=== PATIENT | female | born 1990 | race Hispanic/Latino ===

== ENCOUNTER 2024-01-29 00:17 | Inpatient (IN) | payer SELFPAY ==
[2024-01-29] VITALS (48 sets, daily range): BP systolic 76–141; BP diastolic 41–92; PULSE 90–128; RESP 9–37; TEMP 98.6–99.2; O2SAT 97–99
[~2024-01-29] VITALS: Ht 160 cm; Wt 62.6 kg
[2024-01-29 00:43] LABS: ABG OXYGEN SATURATION 73.1 % (94.0-98.0); BASE EXCESS,VENOUS BLOOD GAS -15.1 (-2.0-3.0); HCO3,VENOUS BLOOD GAS 11.3 (22.0-29.0); PCO2,VENOUS BLOOD GAS 29 (38-54); PH,VENOUS BLOOD GAS 7.207 (7.320-7.430); PO2,VENOUS BLOOD GAS 44.3 mmHg (23.0-48.0); VENT MODE, BG ROOMAIR (ROOM AIR)
[2024-01-29 00:50] LABS: BASOPHILS # (AUTO) 0.18 K/uL (0.00-0.20); BASOPHILS % (AUTO) 1.2 % (0.0-5.0); EOSINOPHILS # (AUTO) 0.06 K/uL (0.00-0.70); EOSINOPHILS % (AUTO) 0.4 % (0.0-8.0); HEMATOCRIT 40.3 % (36-48); IMMATURE GRANULOCYTE ABSOLUTE 0.07 K/uL (0-1); LYMPHOCYTES # (AUTO) 1.3 K/uL (1.0-4.8); LYMPHOCYTES % (AUTO) 8.5 % (21.0-51.0); MEAN CORPUSCULAR HEMOGLOBIN 29.7 pg (27.0-33.0); MEAN CORPUSCULAR HGB CONC 31.8 g/dL (32.0-36.0); MEAN CORPUSCULAR VOLUME 93.5 fL (79-99); MONOCYTES # (AUTO) 0.8 K/uL (0.1-1.0); MONOCYTES % (AUTO) 5.4 % (3.0-13.0); NEUTROPHILS # (AUTO) 12.7 K/uL (1.8-7.7); PLATELET COUNT (AUTO) 306 K/uL (130-400); RED BLOOD CELL COUNT(AUTO) 4.31 MIL/uL (4.00-5.50); RED CELL DISTRIBUTION WIDTH 13.2 % (11.0-15.5); WHITE BLOOD COUNT (AUTO) 15.1 K/uL (4.8-10.8)
--- NOTE | 2024-01-29 00:53 | ERN ---
ED Note History of Present Illness Stated Complaint: C/O ABD PAIN WITH N X V ONSET 2 HRS DRAWER IN DOBBY LOOM Chief Complaint: Abdominal Pain Time Seen by MD: 00:30 Time Seen by Midlevel: 00:30 Dictation: 33-year-old female presents to the emergency department due to report of having abdominal cramping, nausea, vomiting and generalized weakness that began yesterday. Patient states that she does have a history of diabetes and has been off her insulin for the past 2 days. She states the purpose of being off the insulin is with no specific purpose since she does have incidental home. Patient states that she believes that she might be in diabetic ketoacidosis due to having a history of being and that is state. She reports having approximately 6 episodes of vomiting prior to arrival. Upon initial evaluation, the patient presents ill looking. Allergies: Coded Allergies: No Known Allergies (Unverified Allergy, Unknown, 01/29/24) Emergency Care DRAWER IN DOBBY LOOM: None Past Medical History Past Medical History: Diabetes-Type II Surgical History: Unknown Social History: Lives with family LMP: Jan 24, 2024 RN Note Reviewed/Agreed w/PFSH: Yes Review of System Dictation Constitutional: Generalized weakness Abdomen/GI: Abdominal cramping, nausea, vomiting Initial Vital Sign VS Vital Signs Date Time Temp Pulse Resp B/P (MAP) Pulse Ox O2 Delivery O2 Flow Rate FiO2 01/29/24 00:19 97.9 119 24 117/78 100 Room Air Physical Exam Dictation General: awake, alert, ill looking Head/Face: Normocephalic, atraumatic Eyes: PERRL, EOMI ENT: Oral mucosa dry Neck: Trachea midline, supple Cardiovascular: RRR, no edema Respiratory: Symmetrical, non-labored Abdomen: Soft, non-tender, non-distended, no guarding. Skin: Warm, dry, no rash MS/Extremity: Pulses equal, no cyanosis, neurovascular intact, FROM Neuro: COAx4, GCS 15, steady gait, Psych: Anxious Results (Laboratory/Radiology) Laboratory/Radiology Laboratory Tests Test 01/29/24 00:39 01/29/24 00:40 01/29/24 00:41 Whole Blood Glucose 583 MG/DL (70-110) *H Bedside Glucose Comment Notified Nurse White Blood Count 15.1 K/uL (4.8-10.8) H Red Blood Count 4.31 MIL/uL (4.00-5.50) Hemoglobin 12.8 g/dL (12.0-16.0) Hematocrit 40.3 % (36-48) Mean Corpuscular Volume 93.5 fL (79-99) Mean Corpuscular Hemoglobin 29.7 pg (27.0-33.0) Mean Corpuscular Hemoglobin Concent 31.8 g/dL (32.0-36.0) L Red Cell Distribution Width 13.2 % (11.0-15.5) Platelet Count 306 K/uL (130-400) Mean Platelet Volume 11.3 fL (7.5-10.5) H Immature Granulocyte % (Auto) 0.5 % (0-1) Neutrophils (%) (Auto) 84.0 % (40.0-77.0) H Lymphocytes (%) (Auto) 8.5 % (21.0-51.0) L Monocytes (%) (Auto) 5.4 % (3.0-13.0) Eosinophils (%) (Auto) 0.4 % (0.0-8.0) Basophils (%) (Auto) 1.2 % (0.0-5.0) Neutrophils # (Auto) 12.7 K/uL (1.8-7.7) H Lymphocytes # (Auto) 1.3 K/uL (1.0-4.8) Monocytes # (Auto) 0.8 K/uL (0.1-1.0) Eosinophils # (Auto) 0.06 K/uL (0.00-0.70) Basophils # (Auto) 0.18 K/uL (0.00-0.20) Absolute Immature Granulocyte (auto 0.07 K/uL (0-1) Nucleated Red Blood Cells 0.0 % (0.0-0.19) White Cell Morphology Comment See comments Sodium Level 131 mmol/L (136-145) L Potassium Level 4.7 mmol/L (3.5-5.1) Chloride Level 88 mmol/L (101-111) *L Carbon Dioxide Level 12 mmol/L (21-32) L Blood Urea Nitrogen 20 mg/dL (7-18) H Creatinine 1.2 mg/dL (0.5-1.0) H Glomerular Filtration Rate Calc 61 mL/min (>90) Random Glucose 613 mg/dL (70-105) *H Whole Blood Ketones Quantitative 7.4 mmol/L (0.0-0.6) H Lactic Acid Level 2.4 mmol/L (0.8-2.5) Total Calcium 9.8 mg/dL (8.5-10.1) Magnesium Level 2.20 mg/dL (1.80-2.40) Total Bilirubin 0.8 mg/dL (0.2-1.0) Aspartate Amino Transf (AST/SGOT) 14 U/L (10-37) Alanine Aminotransferase (ALT/SGPT) 19 U/L (12-78) Alkaline Phosphatase 125 U/L (50-136) Total Protein 8.3 g/dL (6.0-8.3) Albumin 4.0 g/dL (3.5-5.0) Lipase 35 U/L (16-77) Blood Gas Specimen Type Venous Arterial Blood Oxygen Saturation 73.1 % (94.0-98.0) L Venous Blood pH 7.207 (7.320-7.430) Venous Blood pCO2 at Patient Temp 29 (38-54) L Venous Blood pO2 at Patient Temp 44.3 mmHg (23.0-48.0) Venous Blood HCO3 11.3 (22.0-29.0) L Venous Blood Base Excess -15.1 (-2.0-3.0) L Venous Blood Total Hemoglobin 13.7 (12.0-16.0) Sodium (Blood Gas) 136 MMOL/L (136-145) Bedside Potassium (Blood Gas) 4.8 MMOL/L (3.4-4.5) H Bedside Chloride (Blood Gas) 94 MMOL/L (98-107) L Bedside Glucose (Blood Gas) 604 MG/DL (65-95) *H Bedside Ionized Calcium (Blood Gas) 1.31 MMOL/L (1.15-1.33) Bedside Lactic Acid (Blood Gas) 1.98 MMOL/L (0.36-0.75) H Blood Gas Temperature 37.0 CELSIUS (35.5-37.0) Blood Gas Vent Mode ROOMAIR (ROOM AIR) FiO2 21.0 % Blood Gas Specimen Comment RA Labs Reviewed?: Yes EKG Comment: 01/29/2024 at 1:12 a.m. Ventricular rate 121 beats per minute GA 168 MS QRS 66 MS QT 312 MS No STEMI. ED Course ED Course Orders Procedure Category Date Status Time Vital Signs Per CPOE 01/29/24 Transmitted Routine 00:30 Saline Lock Iv CPOE 01/29/24 Transmitted 00:30 Cbc With Differential LAB 01/29/24 Complete 00:30 Comprehensive LAB 01/29/24 Complete Metabolic Panel 00:38 Lactic Acid LAB 01/29/24 Complete 00:38 Magnesium LAB 01/29/24 Complete 00:38 Ketone Blood LAB 01/29/24 Complete Quantitative 00:38 Urinalysis Profile LAB 01/29/24 Logged 00:38 ,Urine Test LAB 01/29/24 Logged 00:38 Venous Blood Gas + RT 01/29/24 Transmitted 00:38 Venous Blood Gas Plus LAB 01/29/24 Complete 00:41 0.9%Nacl 1000ml (Ns PHA 01/29/24 Complete 1000ml) ... 01:00 Lipase LAB 01/29/24 Complete 00:40 Ondansetron 4mg Inj PHA 01/29/24 Complete (Zofran 4mg Inj) 01:00 Initiate REFUGIO 01/29/24 In Process Hyperglycemia Protoco 00:54 Insulin Regular, PHA 01/29/24 Complete Human 3ml (Humulin R 07:30 Insulin Regular, PHA 01/29/24 In Process Human 3ml (Humulin R 01:00 12 Lead Ekg Tracing- EKG 01/29/24 Logged Technical 01:07 Current Medications Medications (Trade) Dose Ordered Sig/Judah Route PRN Reason Start Time Stop Time Status Last Admin Dose Admin Insulin Human Regular (humuLIN R 100 UNIT/ML 3ML) INSULIN SLIDING SCAL... ACHS SQ 01/29/24 07:30 01/29/24 01:00 DC Insulin Human Regular 100 unit/ Sodium Chloride 100 ml @ 0 mls/hr AD PRN IV HYPERGLYCEMIA PROTOCOL 01/29/24 01:00 02/28/24 00:59 Ondansetron HCl (zoFRAN 4MG INJ) 4 mg ONCE ONCE IVP 01/29/24 01:00 01/29/24 01:01 DC 01/29/24 01:06 Sodium Chloride/ Sodium Chloride 2,000 ml @ 0 mls/hr ONCE ONCE IV 01/29/24 01:00 01/29/24 01:01 DC 01/29/24 01:05 Vital Signs Date Time Temp Pulse Resp B/P (MAP) Pulse Ox O2 Delivery O2 Flow Rate FiO2 01/29/24 00:19 97.9 119 24 117/78 100 Room Air Medical Decision Making MDM MDM: Differential diagnosis: Diabetic ketoacidosis, acute dehydration, electrolyte imbalance. Rationale: Tests considered and ordered secondary to shared decision making include: Previous outside records reviewed: Old ER visits. Risk of complication and/or morbidity or mortality of patient management: None Medications-Per medication reconciliation Need for hospitalization: Patient does not meet criteria for hospitalization. Need for emergency major/minor surgery: No There are no social concerns with this patient. Prescription drug management Prescriptions will include symptomatic care Patient's prior external medical records from other ER visits were reviewed by me as indicated. Prior testing and results from previous visits were reviewed. Prior tests were taken into account with medical decision making and resource utilization, independent historian/historians were used to obtain complete medical history. I independently interpreted the test that were performed, results were reviewed by me and considered findings on radiology if ordered. Medical management and examination interpretation discussions were had by me with other qualified healthcare professionals as indicated for the patient's care. Critical Care Note Critical Time: 45 minutes Comment(s) 01/29/2024 at 1:30 a.m.. Discussed with Esha Hudson and agrees for admission. DX & DISP Disposition: Inpatient Decision to Admit Date: Jan 29, 2024 Decision to Admit Time: 01:09 Departure Impression: Primary Impression: Diabetic ketoacidosis without coma Critical Time: 45 minutes Condition: Critical I have reviewed the case, and I agree with, Diagnosis and Plan TK YOU Jan 29, 2024 00:53
[2024-01-29] MEDS ORDERED: INSULIN REGULAR, HUMAN 3ML 100 UNIT in 0.9%NACL 100ML 99 ML IV PRN (01:00)
[2024-01-29] MEDS: [UNRECOGNIZED DRUG - OTHER] IV ONE (01:05)
[2024-01-29] MEDS: ondanSETRON 4MG INJ IVP ONE (01:06)
[2024-01-29 01:12] LABS: BILIRUBIN,TOTAL 0.8 mg/dL (0.2-1.0); CREATININE 1.2 mg/dL (0.5-1.0); MAGNESIUM 2.2 mg/dL (1.80-2.40); POTASSIUM 4.7 mmol/L (3.5-5.1); TOTAL PROTEIN, SERUM 8.3 g/dL (6.0-8.3)
--- NOTE | 2024-01-29 01:28 | HP ---
[facility] Date of Service: Jan 29, 2024 Time of Service: 01:28 PCP: Self-referral HISTORY OF PRESENT ILLNESS: This is a 33-year-old female with past medical history of diabetes type 1 who presents to the ED for complaints of abdominal pain, nausea, vomiting, generalized weakness and diarrhea which started yesterday. Patient states she had the shrimp cocktail for dinner and she started having nausea, vomiting , diarrhea and epigastric pain. Patient patient described pain as sharp. Patient states she had six episodes of nonbloody diarrhea and more than 20 episodes of nonbloody vomiting. Patient reports she has not been taking her insulin for the past two days. Patient reports he has similar problems in the past. Seen and examined patient in the ER awake alert and coherent,appears acutely ill and uncomfortable.Patient continues to have nausea,vomiting and abdominal krysta n8/10 pain level.Patient denies fever,chest pain,palpitation ,cough and shortness of breath. Latest Vital signs temperature 97.9, heart rate 118, blood pressure 99/58, saturation 99% on room air. Labs: VBG PH 7.20, CO2 29, PO2 44, bicarb 11, base excess -15. WBC 15 with negative left shift of neutrophils 84. Sodium 131, chloride 88, CO2 12, BUN 20, creatinine 1.2, GFR 61 glucose 613, ketones 7.4 lactic acid 2.4, lipase 35. While in the ER patient received 2 L of NS bolus, 4 mg IV and patient was started on insulin drip. We will admit patient to ICU for further medical management. REVIEW OF SYSTEMS CONSTITUTIONAL: Positive chills Denies fever & night sweats. No unintentional weight loss reported. NEUROLOGICAL: Positive generalized body weakness Denies headache, amaurosis fugax, motor weakness, sensory deficit, vertigo/spinning sensation, gait abnormalities, or tremors. ENT: No hearing loss, otalgia, otorrhea, rhinitis, rhinorrhea, hoarseness, or sore throat. CARDIOVASCULAR: Denies any exertional angina, dyspnea on exertion, orthopnea, paroxysmal nocturnal dyspnea, palpitations, life-threatening arrhythmias, claudication. PULMONARY: Denies any shortness of breath, cough, phlegm/sputum, hemoptysis, pleuritic chest pain. SLEEP: Denies morning headaches, daytime somnolence or napping. Denies difficulty falling asleep, staying asleep, waking from sleep. Denies knowledge of snoring. GASTROINTESTINAL: Positive abdominal pain, nausea , vomiting and diarrhea Denies any type of dysphagia to either liquids or solids. Denies nausea, vomiting, pyrosis, early satiety, abdominal pain, diarrhea, constipation, or changes in stool consistency or caliber. Denies coffee-ground emesis, hematemesis, hematochezia, or melanotic stools. GENITOURINARY: Denies frequency, urgency, nocturia, hematuria or incontinence (Storage/Irritative symptoms.) Low urinary stream, straining to void, urinary intermittency or hesitancy, splitting of the voiding stream, terminal dribbling. ENDOCRINOLOGIC: Denies polyuria, polydipsia, polyphagia or heat/cold intolerances. HEMATOLOGIC: Denies thrombophilia/previous clots, or coagulopathy/bleeding disorders. ONCOLOGIC: Denies personal history of malignancy. DERMATOLOGIC: Denies rashes or pruritus. PSYCHIATRIC: Denies any suicidal or homicidal ideation. Denies hallucinations. PAST MEDICAL HISTORY: [ Type 1 diabetes ] PAST SURGICAL HISTORY: [ Patient denies ] PAST SOCIAL HISTORY: [ Patient lives alone. Patient admits to smoking six cigar per day. Patient denies alcohol and recreational drug use ] FAMILY HISTORY: [ Noncontributory ] Coded Allergies: No Known Allergies (Unverified Allergy, Unknown, 01/29/24) PHYSICAL EXAM GENERAL APPEARANCE: The patient is awake, alert, and oriented, in no acute cardiopulmonary distress. NEUROLOGICAL: Cranial nerves II-XII grossly intact. Motor is 5/5 in bilateral upper and lower extremities proximal to distal. No sensory deficits. HEENT: Face is symmetric. Pupils are equal and reactive. Extraocular movements are intact. NECK: Supple. No JVD. No thyromegaly. No submental, submandibular, pre- /postauricular, occipital or supraclavicular lymphadenopathy. CHEST: Normal chest expansion. No Telemetry. LUNGS: Absence of any rales, rhonchi or any wheezing. CARDIOVASCULAR: Tachycardic Regular. S1 and S2 normal. No appreciable rubs, murmurs or gallops. ABDOMEN: Abdominal tenderness around epigastric area Soft and nondistended. There is no rebound, voluntary guarding, or rigidity. : Deferred. No Jacob. EXTREMITIES: Non-edematous and not cyanotic. No clubbing. Good capillary refill. SKIN: No skin breakdown. Vital Sign (Last 24 Hours) 01/29/24 00:19 Temp 97.9 Pulse 119 Resp 24 B/P (MAP) 117/78 Pulse Ox 100 O2 Delivery Room Air LABS: Laboratory: Test 01/29/24 00:41 01/29/24 00:40 01/29/24 00:39 Range/Units Blood Gas Specimen Type Venous Arterial Blood Oxygen Saturation 73.1 L 94.0-98.0 % Venous Blood pH 7.207 L 7.320-7.430 Venous Blood pCO2 at Patient Temp 29 L 38-54 Venous Blood pO2 at Patient Temp 44.3 23.0-48.0 mmHg Venous Blood HCO3 11.3 L 22.0-29.0 Venous Blood Base Excess -15.1 L -2.0-3.0 Venous Blood Total Hemoglobin 13.7 12.0-16.0 Sodium (Blood Gas) 136 136-145 MMOL/L Bedside Potassium (Blood Gas) 4.8 H 3.4-4.5 MMOL/L Bedside Chloride (Blood Gas) 94 L 98-107 MMOL/L Bedside Glucose (Blood Gas) 604 *H 65-95 MG/DL Bedside Ionized Calcium (Blood Gas) 1.31 1.15-1.33 MMOL/L Bedside Lactic Acid (Blood Gas) 1.98 H 0.36-0.75 MMOL/L Blood Gas Temperature 37.0 35.5-37.0 CELSIUS Blood Gas Vent Mode ROOMAIR ROOM AIR FiO2 21.0 % Blood Gas Specimen Comment RA White Blood Count 15.1 H 4.8-10.8 K/uL Red Blood Count 4.31 4.00-5.50 MIL/uL Hemoglobin 12.8 12.0-16.0 g/dL Hematocrit 40.3 36-48 % Mean Corpuscular Volume 93.5 79-99 fL Mean Corpuscular Hemoglobin 29.7 27.0-33.0 pg Mean Corpuscular Hemoglobin Concent 31.8 L 32.0-36.0 g/dL Red Cell Distribution Width 13.2 11.0-15.5 % Platelet Count 306 130-400 K/uL Mean Platelet Volume 11.3 H 7.5-10.5 fL Immature Granulocyte % (Auto) 0.5 0-1 % Neutrophils (%) (Auto) 84.0 H 40.0-77.0 % Lymphocytes (%) (Auto) 8.5 L 21.0-51.0 % Monocytes (%) (Auto) 5.4 3.0-13.0 % Eosinophils (%) (Auto) 0.4 0.0-8.0 % Basophils (%) (Auto) 1.2 0.0-5.0 % Neutrophils # (Auto) 12.7 H 1.8-7.7 K/uL Lymphocytes # (Auto) 1.3 1.0-4.8 K/uL Monocytes # (Auto) 0.8 0.1-1.0 K/uL Eosinophils # (Auto) 0.06 0.00-0.70 K/uL Basophils # (Auto) 0.18 0.00-0.20 K/uL Absolute Immature Granulocyte (auto 0.07 0-1 K/uL Nucleated Red Blood Cells 0.0 0.0-0.19 % White Cell Morphology Comment See comments Sodium Level 131 L 136-145 mmol/L Potassium Level 4.7 3.5-5.1 mmol/L Chloride Level 88 *L 101-111 mmol/L Carbon Dioxide Level 12 L 21-32 mmol/L Blood Urea Nitrogen 20 H 7-18 mg/dL Creatinine 1.2 H 0.5-1.0 mg/dL Glomerular Filtration Rate Calc 61 >90 mL/min Random Glucose 613 *H 70-105 mg/dL Whole Blood Ketones Quantitative 7.4 H 0.0-0.6 mmol/L Lactic Acid Level 2.4 0.8-2.5 mmol/L Total Calcium 9.8 8.5-10.1 mg/dL Magnesium Level 2.20 1.80-2.40 mg/dL Total Bilirubin 0.8 0.2-1.0 mg/dL Aspartate Amino Transf (AST/SGOT) 14 10-37 U/L Alanine Aminotransferase (ALT/SGPT) 19 12-78 U/L Alkaline Phosphatase 125 50-136 U/L Total Protein 8.3 6.0-8.3 g/dL Albumin 4.0 3.5-5.0 g/dL Lipase 35 16-77 U/L Whole Blood Glucose 583 *H 70-110 MG/DL Bedside Glucose Comment Notified Nurse Current Medications Medications (Trade) Dose Ordered Sig/Judah Route PRN Reason Start Time Stop Time Status Last Admin Dose Admin Insulin Human Regular (humuLIN R 100 UNIT/ML 3ML) INSULIN SLIDING SCAL... ACHS SQ 01/29/24 07:30 01/29/24 01:00 DC Insulin Human Regular 100 unit/ Sodium Chloride 100 ml @ 0 mls/hr AD PRN IV HYPERGLYCEMIA PROTOCOL 01/29/24 01:00 02/28/24 00:59 DIAGNOSTICS / RADIOLOGY: [ ] ASSESSMENT: Diabetic ketoacidosis with high anion gap metabolic acidosis POA Possible dehydration POA Acute gastroenteritis POA Acute kidney injury POA Sepsis without septic shock POA History of type 1 diabetes POA PLAN: We will admit patient to ICU We will start patient on insulin drip, IV fluids and electrolyte replacement as per DKA protocol We will start patient on famotidine 20 mg IV b.i.d. for GI prophylaxis We will start patient on Levaquin and Flagyl IV for broad-spectrum coverage We will add p.r.n. medication for pain fever nausea and vomiting We will keep patient nothing by mouth We will follow up urinalysis and urine toxicology result We will obtain stool culture and GI stool panel We will seek fecal care consultation for critical care management We will seek endocrinology consultation We will check labs in a.m. Further recommendations to follow depending upon hospitalization course Case discussed with the attending MD and came up with the above treatment and plan of care ADVANCED CARE PLANNING 1. Which of the following were discussed? Hospice Care - No Therapeutic options - Yes Advance Directives - No Other discussions - 2. Discussed with who? Patient 3. Voluntary nature of this service was explained to the patient? Yes 4. Amount of time spent - ___22____ 5. Reviewed by Physician? (if this service was performed by NPP) Yes ADVANCED CARE PLANNING 1. Which of the following were discussed? Hospice Care - Yes / No Therapeutic options - Yes / No Advance Directives - Yes / No Other discussions - 2. Discussed with who? 3. Voluntary nature of this service was explained to the patient? Yes / No 4. Amount of time spent - 5. Reviewed by Physician? (if this service was performed by NPP) Yes / No JOYCELYN LEHMAN Jan 29, 2024 01:28
[2024-01-29] MEDS ORDERED: DEXTROSE 5 %-0.45 % NACL 1,000 ML IV SCH (02:30)
[2024-01-29] MEDS ORDERED: MANNITOL 20% 250ML IV.SOLN IV SCH (02:30)
[2024-01-29] MEDS ORDERED: MAGNESIUM 2GM PREMIX 50ML 50 ML IV SCH (02:30)
[2024-01-29] MEDS ORDERED: INSULIN REGULAR, HUMAN 3ML 100 UNIT in 0.9%NACL 100ML 100 ML IV SCH (02:30)
[2024-01-29] MEDS: 0.9%NACL 1000ML 1,000 ML IV SCH (02:35)
[2024-01-29] MEDS: PoTASSium chloRIDE 20MEQ/10ML 20 MEQ in 0.9%NACL 1000ML 1,000 ML IV SCH (02:37)
[2024-01-29] MEDS: NS-20 MEQ KCL 1000ML 1,000 ML IV ONE (02:38)
[2024-01-29 02:59] LABS: HCG,QUALITATIVE URINE NEGATIVE (NEGATIVE)
[2024-01-29] MEDS ORDERED: MANNITOL 20% 500 ML IV.SOLN IV SCH (03:00)
[2024-01-29 03:03] LABS: ADD UA MICROSCOPIC YES; APPEARANCE,URINE CLEAR (CLEAR); BILIRUBIN,URINE NEGATIVE (NEGATIVE); COLOR,URINE COLORLESS (YELLOW); GLUCOSE, URINE (UA) >=1000 mg/dL (NEGATIVE); KETONES,URINE 150 mg/dL (NEGATIVE); LEUKOCYTE ESTERASE ,URINE NEGATIVE Leu/uL (NEGATIVE); NITRATE,URINE NEGATIVE (NEGATIVE); OCCULT BLOOD,URINE NEGATIVE (NEGATIVE); PROTEIN,URINE NEGATIVE (NEGATIVE); UROBILINOGEN,URINE 0.2 mg/dL (0.2-1.0)
[2024-01-29 03:06] LABS: BACTERIA,URINE RARE /HPF (None Seen); MUCUS,URINE RARE LPF (None Seen); RBC,URINE 0-1 /HPF (0-1); SQUAMOUS EPITHELIAL CELL,UR RARE /HPF (0-2)
[2024-01-29] MEDS: metRONIDazole 500MG/100ML BAG 100 ML IV SCH (03:24)
[2024-01-29] MEDS: levoFLOXacin 500 MG/D5W 100 ML 100 ML IV SCH (03:24)
[2024-01-29] MEDS: LACTATED RINGERS 1000ML IV ONE (03:44)
[2024-01-29 03:50] LABS: AMPHET/METH SCREEN,URINE NEGATIVE (NEGATIVE); BARBITURATE SCREEN, URINE NEGATIVE (NEGATIVE); BENZODIAZEPINES SCREEN,URINE NEGATIVE (NEGATIVE); CANNABINOID SCREEN,URINE NEGATIVE (NEGATIVE); COCAINE SCREEN,URINE POSITIVE (NEGATIVE); OPIATE SCREEN,URINE NEGATIVE (NEGATIVE); PHENCYCLIDINE SCREEN,URINE NEGATIVE (NEGATIVE)
[2024-01-29] MEDS ORDERED: NOREPINEPHRIN 4MG/NS 250ML 250 ML IV SCH (04:00)
[2024-01-29 05:10] LABS: BASOPHILS # (AUTO) 0.11 K/uL (0.00-0.20); BASOPHILS % (AUTO) 0.7 % (0.0-5.0); EOSINOPHILS # (AUTO) 0.01 K/uL (0.00-0.70); EOSINOPHILS % (AUTO) 0.1 % (0.0-8.0); HEMATOCRIT 34.7 % (36-48); LYMPHOCYTES # (AUTO) 0.9 K/uL (1.0-4.8); MEAN CORPUSCULAR HEMOGLOBIN 29.7 pg (27.0-33.0); MEAN CORPUSCULAR HGB CONC 31.4 g/dL (32.0-36.0); MEAN CORPUSCULAR VOLUME 94.6 fL (79-99); MONOCYTES # (AUTO) 0.7 K/uL (0.1-1.0); MONOCYTES % (AUTO) 4.9 % (3.0-13.0); NEUTROPHILS # (AUTO) 13.2 K/uL (1.8-7.7); NEUTROPHILS % (AUTO) 87.6 % (40.0-77.0); PLATELET COUNT (AUTO) 261 K/uL (130-400); RED BLOOD CELL COUNT(AUTO) 3.67 MIL/uL (4.00-5.50); RED CELL DISTRIBUTION WIDTH 13.1 % (11.0-15.5)
[2024-01-29 05:45] LABS: ALBUMIN 3.1 g/dL (3.5-5.0); BILIRUBIN,TOTAL 0.4 mg/dL (0.2-1.0); CREATININE 0.9 mg/dL (0.5-1.0); MAGNESIUM 1.7 mg/dL (1.80-2.40); POTASSIUM 4.6 mmol/L (3.5-5.1); THYROID STIMULATING HORMONE 0.26 uIU/mL (0.36-3.74); TOTAL PROTEIN, SERUM 6.2 g/dL (6.0-8.3)
[2024-01-29] MEDS: D5W-1/2 NS/20MEQ KCL 1,000 ML IV SCH (05:55)
[2024-01-29] MEDS ORDERED: LORazepam 2 MG/ML 1 ML VIAL IVP ONE (06:35)
--- NOTE | 2024-01-29 06:52 | EKG ---
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
[2024-01-29] MEDS ORDERED: INSULIN humuLIN R 100 UNIT/ML 3ML SQ SCH ×2 (07:30→21:00)
[2024-01-29] MEDS: FAMOTIDINE 20MG VIAL IV SCH (07:58)
[2024-01-29] MEDS: ondanSETRON 4MG INJ IV PRN (07:58)
[2024-01-29] MEDS ORDERED: [UNRECOGNIZED DRUG - OTHER] SQ (08:07)
--- NOTE | 2024-01-29 08:35 | CONS ---
[facility] CONSULTATION NOTE Date Patient Seen: Jan 29, 2024 Time of Visit: 08:06 Supervising Physician: Colton Loredo MD Reason for Consultation: Critical care management Primary Care Physician: Self-referral Outpatient Specialists: Inpatient Consults: Critical care Attending: Jennifer team PROBLEM LIST: DKA, POA Dehydration, POA Gastroenteritis, POA ZECHARIAH, POA Sepsis, POA Leukocytosis, POA Hyperglycemia in the presence of T1DM Hypomagnesemia Drug abuse (cocaine+ on UDS) HPI: Patient is a 33-year-old female with a past medical history of type 1 diabetes mellitus and drug abuse as evident by UDS positive for cocaine, who came in overnight for complaints of nausea, vomiting, diarrhea and epigastric pain. In the ED she was found to be in DKA with a pH of 7.20, pCO2 of 29 PO2 of 44.3 and bicarb of 11.3 on a venous blood gas. Glucose was 604. On CBC patient had leukocytosis with a white count of 15 , chemistry patient was also found to have a carbon dioxide of 12, BUN of 20 creatinine of 1.2 and GFR of 61 consistent with a ZECHARIAH in the ketones of 7.4. Patient was admitted by the catalyst team to the ICU for insulin for DKA, was started on Levaquin and Flagyl for gastroenteritis and IV fluids started. We were consulted for critical care management. On behalf of [facility] thank you for given us the opportunity to participate in the care of this patient. Patient was seen this morning lethargic but easily arousable to voice. Reports nausea and vomiting but decreased epigastric pain. Patient is sinus tachy on the monitor with a heart rate of 110 beats per minute but hemodynamically stable with a blood pressure of 101/45. The patient's currently receiving insulin per DKA protocol and IV fluids. She has been afebrile saturating at 99% with respiratory rate of 16 unlabored. This morning sodium is 141 potassium 4.6 chloride 105 with a CO2 of 15 BUN of 16 creatinine 0.9 GFR is 87 kidney function improving. Anion gap still elevated at 21. Glucose 281 mg/dL magnesium 1.7 covered per protocol total calcium 8.2 albumin 3.1 and TSH 0.26. PAST MEDICAL HX: Type 1 diabetes mellitus PAST SURGICAL HX: noncontributory SOCIAL HISTORY: No tobacco, ETOH, or illicit drug use Coded Allergies: No Known Allergies (Unverified Allergy, Unknown, 01/29/24) REVIEW OF SYSTEMS: 12 point ROS reviewed with patient. Pertinent positives mentioned above. Otherwise negative. PHYSICAL EXAM: GENERAL: Lethargic, weak, easily arousable, oriented x 3 HEENT: EOMI, Sclera non icteric, moist mucosa NECK: Supple, no JVD, trachea midline LUNGS: Clear breath sounds bilaterally. No wheezes HEART: Regular rate and rhythm. Normal S1 and S2, without murmurs ABD: Abdomen soft, nontender. Bowel sounds present EXT: No clubbing cyanosis or edema NEURO: Alert and oriented to person, follows commands Vital Signs (last 8hr) Date Time Temp Pulse Resp B/P (MAP) Pulse Ox O2 Delivery O2 Flow Rate FiO2 01/29/24 07:30 119 14 107/61 (76) 100 01/29/24 07:15 119 11 141/92 (108) 98 01/29/24 07:00 122 9 76/42 (53) 98 01/29/24 06:45 119 14 92/41 (58) 98 01/29/24 06:30 122 10 99/45 (63) 98 01/29/24 06:15 123 16 103/52 (69) 97 01/29/24 06:00 125 17 102/58 (73) 98 01/29/24 05:45 123 18 93/58 (70) 96 01/29/24 05:30 123 17 94/54 (67) 98 01/29/24 05:18 98 Room Air* 0 21 01/29/24 05:15 123 17 108/52 (70) 98 01/29/24 05:00 124 19 105/49 (67) 98 01/29/24 04:45 127 17 105/58 (74) 98 01/29/24 04:30 124 18 102/64 (77) 99 01/29/24 04:15 127 17 108/80 (89) 99 01/29/24 04:00 99.0 128 22 109/45 (66) 99 01/29/24 03:51 98.2 125 16 101/45 99 Room Air* 0 21 01/29/24 03:18 98.2 124 20 100/42 99 Room Air* 0 21 01/29/24 01:30 97.9 118 23 99/58 99 Room Air* 0 21 01/29/24 00:19 97.9 119 24 117/78 100 Room Air LABS: Hematology Labs: Test 01/29/24 04:53 01/29/24 00:40 Range/Units White Blood Count 15.0 H 4.8-10.8 K/uL Red Blood Count 3.67 L 4.00-5.50 MIL/uL Hemoglobin 10.9 L 12.0-16.0 g/dL Hematocrit 34.7 L 36-48 % Mean Corpuscular Volume 94.6 79-99 fL Mean Corpuscular Hemoglobin 29.7 27.0-33.0 pg Mean Corpuscular Hemoglobin Concent 31.4 L 32.0-36.0 g/dL Red Cell Distribution Width 13.1 11.0-15.5 % Platelet Count 261 130-400 K/uL Mean Platelet Volume 11.0 H 7.5-10.5 fL Immature Granulocyte % (Auto) 0.7 0-1 % Neutrophils (%) (Auto) 87.6 H 40.0-77.0 % Lymphocytes (%) (Auto) 6.0 L 21.0-51.0 % Monocytes (%) (Auto) 4.9 3.0-13.0 % Eosinophils (%) (Auto) 0.1 0.0-8.0 % Basophils (%) (Auto) 0.7 0.0-5.0 % Neutrophils # (Auto) 13.2 H 1.8-7.7 K/uL Lymphocytes # (Auto) 0.9 L 1.0-4.8 K/uL Monocytes # (Auto) 0.7 0.1-1.0 K/uL Eosinophils # (Auto) 0.01 0.00-0.70 K/uL Basophils # (Auto) 0.11 0.00-0.20 K/uL Absolute Immature Granulocyte (auto 0.10 0-1 K/uL Nucleated Red Blood Cells 0.0 0.0-0.19 % White Cell Morphology Comment See comments Chemistry Labs: Test 01/29/24 06:29 01/29/24 04:53 01/29/24 00:40 01/29/24 00:39 Range/Units Whole Blood Glucose 220 H 70-110 MG/DL Sodium Level 141 136-145 mmol/L Potassium Level 4.6 3.5-5.1 mmol/L Chloride Level 105 101-111 mmol/L Carbon Dioxide Level 15 L 21-32 mmol/L Blood Urea Nitrogen 16 7-18 mg/dL Creatinine 0.9 0.5-1.0 mg/dL Glomerular Filtration Rate Calc 87 >90 mL/min Random Glucose 281 #H 70-105 mg/dL Hemoglobin A1c 13.0 H 4.0-6.0 % Estimated Average Glucose (eAG) 326 H 70-126 mg/dL Lactic Acid Level 1.7 0.8-2.5 mmol/L Total Calcium 8.2 L 8.5-10.1 mg/dL Magnesium Level 1.70 L 1.80-2.40 mg/dL Total Bilirubin 0.4 # 0.2-1.0 mg/dL Aspartate Amino Transf (AST/SGOT) 13 10-37 U/L Alanine Aminotransferase (ALT/SGPT) 19 12-78 U/L Alkaline Phosphatase 101 50-136 U/L Total Protein 6.2 # 6.0-8.3 g/dL Albumin 3.1 #L 3.5-5.0 g/dL Procalcitonin 0.12 0.05-0.5 ng/mL Thyroid Stimulating Hormone (TSH) 0.26 L 0.36-3.74 uIU/mL Whole Blood Ketones Quantitative 7.4 H 0.0-0.6 mmol/L Lipase 35 16-77 U/L Bedside Glucose Comment Notified Nurse DIAGNOSTICS / RADIOLOGY RESULTS: [ ] PLAN Continue insulin per DKA protocol CBC CMP in a.m. BNP q.4 hours per protocol Glucose per fingerstick Q 1 hour Gastroenteritis may be precipitating infection Continue IV antibiotics with Zosyn Monitor for fevers and increasing leukocytosis Telemetry monitoring Vital signs per ICU Monitor serum sodium which tends to rise as hyperglycemia is corrected Strict I&O Follow fluid balance Add basal insulin tonight NEURO: Minimize central acting medications as possible. Fall Precautions. Well lighted room through the day and minimize interruptions through the night to prevent acute delirium. PULMONARY: Supplemental 02 as needed Titrate Fio2 to keep Spo2 > or = 90% DuoNebs and CPT as needed IS hourly while awake for pulmonary hygiene Out of bed to chair as tolerated VAP Bundle Patient on room air CARDIOVASCULAR: Follow hemodynamics. Titrate vasopressor to keep MAP >65 or systolic blood pressure >95mmHg Telemetry monitoring Drips: Insulin drip LINES: PIV GI & NUTRITION: Continue nutritional support Aspirations precautions Prokinetic agents and laxatives as needed KIDNEYS & ELECTROLYTES: Strict monitoring of intake and output Daily weights Avoid nephrotoxic agents Monitor electrolytes and replace as needed Goal urine output of 30mL/hr or 0.5mL/kg/hr Urine output: [ ] Fluid Balance: [ ] ENDOCRINE: Maintain blood glucose between 100-180 at all times. Insulin sliding scale for blood glucose management INFECTIOUS DISEASE: Trend temperature. Abreu-culture if febrile. Micro: Blood culture- Respiratory culture- Antibiotics: 01/29/24 Zosyn HEMATOLOGY & COAGULATION: Monitor H&H. Keep Hgb > 7 Transfuse 1 unit of PRBC for Hgb < 7 Transfuse 1 pack of platelets of platelets < 20, 000 Watch for any signs and symptoms of bleeding SKIN: Pressure ulcer prevention per facility protocol Rehab: PT/OT Prophylaxis: GI: Pepcid DVT: Lovenox Code Status: Full Resuscitation Disposition: ICU Other: Total patient care time exceeds 35 minutes excluding all procedures. Case was discussed and seen with my supervising physician. The above plan was formulated and agreed upon. LIAM CHAVEZ [facility] Jan 29, 2024 08:35
--- NOTE | 2024-01-29 08:36 | HMCIMG ---
CT ABDOMEN/PELVIS W/O CONTRAST HISTORY: Epigastric pain COMPARISON: None TECHNIQUE: Multiple sequential axial images of the abdomen and pelvis were obtained from the dome of the diaphragm through symphysis pubis. Patient was not given contrast through intravenous route. Oral contrast was not given. FINDINGS: No pleural effusion is seen bilaterally. There is right lower lobe mass near the inferior vena cava measuring 3 x 2.6 cm with spiculated border may be related to neoplastic process versus atypical pneumonia. Degenerative changes of the thoracolumbar spine are present. The heart is not enlarged. Liver measures 18 cm. The liver, spleen, adrenal glands and pancreas are unremarkable. There is no evidence of hydronephrosis bilaterally. No evidence of renal stone is seen. Fecal material is seen in the colon. There are normal size retroperitoneal and mesenteric lymph nodes. No ascites is seen. No CT evidence of acute appendicitis is seen. Pelvic sidewalls are symmetric bilaterally. Bladder is moderately distended with bladder wall thickening measuring 5 mm in thickness. If there is clinical suspicion for cystitis, urinalysis correlation may be helpful. IMPRESSION: 1. There is right lower lobe mass near the inferior vena cava measuring 3 x 2.6 cm with spiculated border may be related to neoplastic process with small possibility of atypical pneumonia not excluded. 2. Bladder is moderately distended with bladder wall thickening measuring 5 mm in thickness. If there is clinical suspicion for cystitis, urinalysis correlation may be helpful. CT was performed with one or more following dose reduction techniques: automated exposure control, adjustment of the mA and kv according to patient's size, or use of a iterative reconstruction technique.
[2024-01-29] MEDS ORDERED: LORazepam 2 MG/ML 1 ML VIAL IVP PRN (09:00)
[2024-01-29] MEDS ORDERED: PHARMACY COMMUNICATION MISC PRN (09:00)
[2024-01-29] MEDS ORDERED: THIAMINE HCL 100 MG/ML 2ML VIAL IM SCH (09:00)
[2024-01-29] MEDS ORDERED: PROMETHAZINE HCL 25 MG TABLET PO PRN (09:00)
--- NOTE | 2024-01-29 09:01 | HMCIMG ---
CHEST 1VW HISTORY: Sepsis COMPARISON: None FINDINGS: A frontal projection of the chest was obtained. No acute pulmonary infiltrates is seen. The heart is borderline enlarged. Prominent interstitial markings are seen. No evidence of aortic calcification is seen. IMPRESSION: 1. No acute pulmonary infiltrate is seen. Prominent interstitial markings.
[2024-01-29 11:13] LABS: CREATININE 0.8 mg/dL (0.5-1.0); POTASSIUM 3.9 mmol/L (3.5-5.1)
[2024-01-29] MEDS ORDERED: PoTASSium chloRIDE 20MEQ/100ML 100 ML IV PRN ×2 (11:30→17:00)
[2024-01-29] MEDS: ZOSYN 3.375GM +NS 50ML IV SCH (11:48)
[2024-01-29] MEDS: FOLic ACID 1 MG TABLET PO SCH ×2 (11:48→13:30)
[2024-01-29] MEDS: MULTIVITAMIN TABLET PO SCH (11:49)
[2024-01-29] MEDS: ENOXAPARIN SODIUM 40 MG/0.4 ML SYRINGE SQ SCH (11:50)
[2024-01-29] MEDS: MAGNESIUM 2GM PREMIX 50ML 50 ML IV PRN (11:51)
[2024-01-29 15:08] LABS: CREATININE 0.8 mg/dL (0.5-1.0); POTASSIUM 3.7 mmol/L (3.5-5.1)
[2024-01-29] MEDS ORDERED: PoTASSium chl 10% ELIXIR 20MEQ 20 MEQ/15 ML UDCUP PO PRN (17:00)
[2024-01-29] MEDS: THIAMINE HCL 100 MG/ML 2ML VIAL IVP SCH (17:19)
[2024-01-29] MEDS: INSULIN GLARgine 100 UNITS/ML 10 ML VIAL SQ ONE (17:20)
[2024-01-29] MEDS: PoTASSium chloRIDE 20MEQ ER 20 MEQ ERTAB PO PRN (17:24)
[2024-01-29 18:29] LABS: CREATININE 0.8 mg/dL (0.5-1.0); POTASSIUM 3.5 mmol/L (3.5-5.1)
[2024-01-29] MEDS: LACTATED RINGERS 1000ML IV SCH (20:27)
[2024-01-29] MEDS: INSULIN GLARgine 100 UNITS/ML 10 ML VIAL SQ SCH (20:30)
[2024-01-29] MEDS: INSULIN humuLIN R 100 UNIT/ML 3ML SQ SCH (20:32)
[2024-01-29 21:05] LABS: CREATININE 0.8 mg/dL (0.5-1.0); POTASSIUM 4.1 mmol/L (3.5-5.1)
[2024-01-30] VITALS (10 sets, daily range): BP systolic 104–155; BP diastolic 66–90; PULSE 75–95; RESP 16–21; TEMP 98–98.8; O2SAT 97–99
[2024-01-30 04:34] LABS: BASOPHILS # (AUTO) 0.09 K/uL (0.00-0.20); BASOPHILS % (AUTO) 1.1 % (0.0-5.0); EOSINOPHILS # (AUTO) 0.35 K/uL (0.00-0.70); EOSINOPHILS % (AUTO) 4.3 % (0.0-8.0); HEMATOCRIT 31.6 % (36-48); IMMATURE GRANULOCYTE ABSOLUTE 0.02 K/uL (0-1); LYMPHOCYTES # (AUTO) 2.3 K/uL (1.0-4.8); LYMPHOCYTES % (AUTO) 28.2 % (21.0-51.0); MEAN CORPUSCULAR HEMOGLOBIN 28.5 pg (27.0-33.0); MEAN CORPUSCULAR HGB CONC 31.6 g/dL (32.0-36.0); MONOCYTES # (AUTO) 0.6 K/uL (0.1-1.0); MONOCYTES % (AUTO) 7.4 % (3.0-13.0); NEUTROPHILS # (AUTO) 4.8 K/uL (1.8-7.7); NEUTROPHILS % (AUTO) 58.8 % (40.0-77.0); PLATELET COUNT (AUTO) 232 K/uL (130-400); RED BLOOD CELL COUNT(AUTO) 3.51 MIL/uL (4.00-5.50); RED CELL DISTRIBUTION WIDTH 13.6 % (11.0-15.5); WHITE BLOOD COUNT (AUTO) 8.2 K/uL (4.8-10.8)
[2024-01-30 04:52] LABS: ALBUMIN 2.3 g/dL (3.5-5.0); BILIRUBIN,TOTAL 0.2 mg/dL (0.2-1.0); CREATININE 0.7 mg/dL (0.5-1.0); POTASSIUM 3.7 mmol/L (3.5-5.1); TOTAL PROTEIN, SERUM 5.1 g/dL (6.0-8.3)
[2024-01-30 05:17] LABS: INFLUENZA TYPE A Negative For Type A (NEGATIVE); INFLUENZA TYPE B Negative For Type B (NEGATIVE)
[2024-01-30 05:18] LABS: COVID19 (SARS ANTIGEN RAPID) PRESUMPTIVE NEGATIVE (NEGATIVE)
[2024-01-30] MEDS ORDERED: THIAMINE HCL 100 MG/ML 2ML VIAL IVP SCH (09:00)
--- NOTE | 2024-01-30 14:19 | PN ---
[facility] PROGRESS NOTE Date of Service: Jan 30, 2024 Time of Service: 14:15 SUBJECTIVE: [ ] The patient has been seen and examined during my rounding, downgraded from the ICU to the medical floor, alert oriented x3, feels weak, hemodynamically stable, BP 128/90, afebrile, saturating normal on room air, no chest pain, no shortness a breath, no nausea, no vomiting, no abdominal pain. REVIEW OF SYSTEMS CONSTITUTIONAL: Positive chills Denies fever & night sweats. No unintentional weight loss reported. NEUROLOGICAL: Positive generalized body weakness Denies headache, amaurosis fugax, motor weakness, sensory deficit, vertigo/spinning sensation, gait abnormalities, or tremors. ENT: No hearing loss, otalgia, otorrhea, rhinitis, rhinorrhea, hoarseness, or sore throat. CARDIOVASCULAR: Denies any exertional angina, dyspnea on exertion, orthopnea, paroxysmal nocturnal dyspnea, palpitations, life-threatening arrhythmias, claudication. PULMONARY: Denies any shortness of breath, cough, phlegm/sputum, hemoptysis, pleuritic chest pain. SLEEP: Denies morning headaches, daytime somnolence or napping. Denies d ifficulty falling asleep, staying asleep, waking from sleep. Denies knowledge of snoring. GASTROINTESTINAL: Positive abdominal pain, nausea , vomiting and diarrhea Denies any type of dysphagia to either liquids or solids. Denies nausea, vomiting, pyrosis, early satiety, abdominal pain, diarrhea, constipation, or changes in stool consistency or caliber. Denies coffee-ground emesis, hematemesis, hematochezia, or melanotic stools. GENITOURINARY: Denies frequency, urgency, nocturia, hematuria or incontinence (Storage/Irritative symptoms.) Low urinary stream, straining to void, urinary intermittency or hesitancy, splitting of the voiding stream, terminal dribbling. ENDOCRINOLOGIC: Denies polyuria, polydipsia, polyphagia or heat/cold intolerances. HEMATOLOGIC: Denies thrombophilia/previous clots, or coagulopathy/bleeding disorders. ONCOLOGIC: Denies personal history of malignancy. DERMATOLOGIC: Denies rashes or pruritus. PSYCHIATRIC: Denies any suicidal or homicidal ideation. Denies hallucinations. PHYSICAL EXAM GENERAL APPEARANCE: The patient is awake, alert, and oriented, in no acute cardiopulmonary distress. NEUROLOGICAL: Cranial nerves II-XII grossly intact. Motor is 5/5 in bilateral upper and lower extremities proximal to distal. No sensory deficits. HEENT: Face is symmetric. Pupils are equal and reactive. Extraocular movements are intact. NECK: Supple. No JVD. No thyromegaly. No submental, submandibular, pre- /postauricular, occipital or supraclavicular lymphadenopathy. CHEST: Normal chest expansion. No Telemetry. LUNGS: Absence of any rales, rhonchi or any wheezing. CARDIOVASCULAR: Tachycardic Regular. S1 and S2 normal. No appreciable rubs, murmurs or gallops. ABDOMEN: Abdominal tenderness around epigastric area Soft and nondistended. There is no rebound, voluntary guarding, or rigidity. : Deferred. No Jacob. EXTREMITIES: Non-edematous and not cyanotic. No clubbing. Good capillary refill. SKIN: No skin breakdown. Vital Signs (last 8hr) Date Time Temp Pulse Resp B/P (MAP) Pulse Ox O2 Delivery O2 Flow Rate FiO2 01/30/24 12:05 98.1 86 18 128/90 99 01/30/24 09:08 97 Room Air* 0 21 01/30/24 07:48 98.2 86 16 125/83 Room Air LABS: Laboratory: Test 01/30/24 11:56 01/30/24 04:15 01/29/24 08:31 01/29/24 04:53 Range/Units Whole Blood Glucose 88 # 70-110 MG/DL White Blood Count 8.2 # 4.8-10.8 K/uL Red Blood Count 3.51 L 4.00-5.50 MIL/uL Hemoglobin 10.0 L 12.0-16.0 g/dL Hematocrit 31.6 L 36-48 % Mean Corpuscular Volume 90.0 79-99 fL Mean Corpuscular Hemoglobin 28.5 27.0-33.0 pg Mean Corpuscular Hemoglobin Concent 31.6 L 32.0-36.0 g/dL Red Cell Distribution Width 13.6 11.0-15.5 % Platelet Count 232 130-400 K/uL Mean Platelet Volume 10.6 H 7.5-10.5 fL Immature Granulocyte % (Auto) 0.2 0-1 % Neutrophils (%) (Auto) 58.8 40.0-77.0 % Lymphocytes (%) (Auto) 28.2 21.0-51.0 % Monocytes (%) (Auto) 7.4 3.0-13.0 % Eosinophils (%) (Auto) 4.3 0.0-8.0 % Basophils (%) (Auto) 1.1 0.0-5.0 % Neutrophils # (Auto) 4.8 1.8-7.7 K/uL Lymphocytes # (Auto) 2.3 1.0-4.8 K/uL Monocytes # (Auto) 0.6 0.1-1.0 K/uL Eosinophils # (Auto) 0.35 0.00-0.70 K/uL Basophils # (Auto) 0.09 0.00-0.20 K/uL Absolute Immature Granulocyte (auto 0.02 0-1 K/uL Nucleated Red Blood Cells 0.0 0.0-0.19 % Sodium Level 136 136-145 mmol/L Potassium Level 3.7 3.5-5.1 mmol/L Chloride Level 106 101-111 mmol/L Carbon Dioxide Level 23 21-32 mmol/L Blood Urea Nitrogen 5 L 7-18 mg/dL Creatinine 0.7 0.5-1.0 mg/dL Glomerular Filtration Rate Calc 117 >90 mL/min Random Glucose 227 H 70-105 mg/dL Total Calcium 7.8 L 8.5-10.1 mg/dL Total Bilirubin 0.2 # 0.2-1.0 mg/dL Aspartate Amino Transf (AST/SGOT) 10 10-37 U/L Alanine Aminotransferase (ALT/SGPT) 13 # 12-78 U/L Alkaline Phosphatase 74 # 50-136 U/L Total Protein 5.1 L 6.0-8.3 g/dL Albumin 2.3 #L 3.5-5.0 g/dL Influenza Type A Antigen Negative For Type A NEGATIVE Influenza Type B Antigen Negative For Type B NEGATIVE SARS-CoV-2 Antigen (Rapid) PRESUMPTIVE NEGATIVE NEGATIVE Serum Alcohol < 3 0-10 mg/dL Hemoglobin A1c 13.0 H 4.0-6.0 % Estimated Average Glucose (eAG) 326 H 70-126 mg/dL Lactic Acid Level 1.7 0.8-2.5 mmol/L Magnesium Level 1.70 L 1.80-2.40 mg/dL Procalcitonin 0.12 0.05-0.5 ng/mL Thyroid Stimulating Hormone (TSH) 0.26 L 0.36-3.74 uIU/mL Test 01/29/24 02:42 01/29/24 00:41 01/29/24 00:40 01/29/24 00:39 Range/Units Urine Color COLORLESS YELLOW Urine Appearance CLEAR CLEAR Urine pH 5.0 5.0-8.0 Urine Specific [place] 1.016 1.001-1.031 Urine Protein NEGATIVE NEGATIVE mg/dL Urine Glucose (UA) >=1000 H NEGATIVE mg/dL Urine Ketones 150 H NEGATIVE mg/dL Urine Occult Blood NEGATIVE NEGATIVE Urine Nitrate NEGATIVE NEGATIVE Urine Bilirubin NEGATIVE NEGATIVE mg/dL Urine Urobilinogen 0.2 0.2-1.0 mg/dL Urine Leukocyte Esterase NEGATIVE NEGATIVE Marla/uL Urine RBC 0-1 0-1 /HPF Urine WBC None 0-1 /HPF Urine Squamous Epithelial Cells RARE 0-2 /HPF Urine Bacteria RARE None Seen /HPF Urine HCG, Qualitative NEGATIVE NEGATIVE Urine Opiates Screen NEGATIVE NEGATIVE Urine Barbiturates Screen NEGATIVE NEGATIVE Urine Phencyclidine Screen NEGATIVE NEGATIVE Urine Amphetamines Screen NEGATIVE NEGATIVE Urine Benzodiazepines Screen NEGATIVE NEGATIVE Urine Cocaine Screen POSITIVE H NEGATIVE Urine Marijuana (THC) Screen NEGATIVE NEGATIVE Blood Gas Specimen Type Venous Arterial Blood Oxygen Saturation 73.1 L 94.0-98.0 % Venous Blood pH 7.207 L 7.320-7.430 Venous Blood pCO2 at Patient Temp 29 L 38-54 Venous Blood pO2 at Patient Temp 44.3 23.0-48.0 mmHg Venous Blood HCO3 11.3 L 22.0-29.0 Venous Blood Base Excess -15.1 L -2.0-3.0 Venous Blood Total Hemoglobin 13.7 12.0-16.0 Sodium (Blood Gas) 136 136-145 MMOL/L Bedside Potassium (Blood Gas) 4.8 H 3.4-4.5 MMOL/L Bedside Chloride (Blood Gas) 94 L 98-107 MMOL/L Bedside Glucose (Blood Gas) 604 *H 65-95 MG/DL Bedside Ionized Calcium (Blood Gas) 1.31 1.15-1.33 MMOL/L Bedside Lactic Acid (Blood Gas) 1.98 H 0.36-0.75 MMOL/L Blood Gas Temperature 37.0 35.5-37.0 CELSIUS Blood Gas Vent Mode ROOMAIR ROOM AIR FiO2 21.0 % Blood Gas Specimen Comment RA White Cell Morphology Comment See comments Whole Blood Ketones Quantitative 7.4 H 0.0-0.6 mmol/L Lipase 35 16-77 U/L Bedside Glucose Comment Notified Nurse Current Medications Medications (Trade) Dose Ordered Sig/Judah Route PRN Reason Start Time Stop Time Status Last Admin Dose Admin Dextrose/Sodium Chloride 1,000 ml @ 0 mls/hr AD IV 01/29/24 02:30 01/29/24 19:58 DC Enoxaparin Sodium (Lovenox) 40 mg DAILY SQ 01/29/24 09:00 02/28/24 08:59 01/30/24 08:48 40 MG Famotidine (Pepcid 20mg Vial) 20 mg BID IV 01/29/24 09:00 02/28/24 08:59 01/30/24 08:50 20 MG Folic Acid (FOLic ACID 1 MG TABLET) 1 mg DAILY PO 01/29/24 09:00 01/29/24 13:06 DC 01/29/24 11:48 1 MG Folic Acid (FOLic ACID 1 MG TABLET) 1 mg DAILY PO 01/29/24 13:30 01/30/24 09:01 DC 01/30/24 08:49 1 MG Insulin Glargine (LANtus 100 UNITS/ML 10 ML VIAL) 15 units BID@0730,2100 SQ 01/29/24 21:00 02/28/24 20:59 01/30/24 06:36 15 UNITS Insulin Human Regular (humuLIN R 100 UNIT/ML 3ML) INSULIN SLIDING SCAL... ACHS SQ 01/29/24 07:30 01/29/24 01:00 DC Insulin Human Regular (humuLIN R 100 UNIT/ML 3ML) INSULIN SLIDING SCAL... ACHS SQ 01/29/24 21:00 01/29/24 19:58 DC Insulin Human Regular (humuLIN R 100 UNIT/ML 3ML) INSULIN SLIDING SCAL... ACHS SQ 01/29/24 21:00 02/28/24 20:59 01/30/24 06:35 8 UNIT Insulin Human Regular 100 unit/ Sodium Chloride 100 ml @ 0 mls/hr AD PRN IV HYPERGLYCEMIA PROTOCOL 01/29/24 01:00 01/29/24 13:07 DC Insulin Human Regular 100 unit/ Sodium Chloride 101 ml @ 0 mls/hr PROTOCOL IV 01/29/24 02:30 01/29/24 19:58 DC Lactated Ringer's (Lactated Ringers 1000ml) 1,000 ml AD IV 01/29/24 20:00 02/28/24 19:59 01/29/24 20:27 1,000 ML Levofloxacin/ Dextrose 100 ml @ 100 mls/hr Q24H IV 01/29/24 03:00 01/29/24 08:34 DC 01/29/24 03:24 100 MLS/HR Loperamide HCl (Imodium) 2 mg AD PRN PO AFTER EACH LOOSE STOOL 01/29/24 08:30 02/28/24 08:29 Lorazepam (AtiVAN) 2 mg Q4H PRN IVP ALCOHOL WITHDRAWAL PROTOCOL 01/29/24 09:00 02/05/24 08:59 Magnesium Sulfate 50 ml @ 0 mls/hr PROTOCOL IV 01/29/24 02:30 01/29/24 11:22 DC Magnesium Sulfate 50 ml @ 0 mls/hr PROTOCOL PRN IV MAG LESS 2 01/29/24 11:30 02/28/24 11:29 01/29/24 11:51 25 MLS/HR Mannitol (Osmitrol 20% 250ml Bag) 31 gm AD IV 01/29/24 02:30 01/29/24 02:42 DC Mannitol (Osmitrol 20% 500ml Bag) 31 gm AD IV 01/29/24 03:00 01/29/24 07:56 DC Metronidazole/ Sodium Chloride 100 ml @ 100 mls/hr Q8H IV 01/29/24 03:00 01/29/24 08:34 DC 01/29/24 03:24 100 MLS/HR Multivitamins Therapeutic (Multivitamin Tablet) 1 tab DAILY PO 01/29/24 09:00 02/28/24 08:59 01/30/24 08:47 1 TAB Norepinephrine 250 ml @ 0 mls/hr PROTOCOL IV 01/29/24 04:00 02/28/24 03:59 Ondansetron HCl (zoFRAN 4MG INJ) 4 mg Q6H PRN IV NAUSEA/VOMITING 01/29/24 03:00 02/28/24 02:59 01/29/24 07:58 4 MG Pharmacy Profile Note (Pharmacy Communication) 1 each PROTOCOL PRN MISC ETOH Withdrawal Score changes 11/6/24 09:00 01/29/24 08:45 DC Piperacillin Sod/ Tazobactam Sod (Zosyn 3.375gm+NS 50ml) 3.375 gm Q8H IV 01/29/24 09:00 02/08/24 08:59 01/30/24 08:50 3.375 GM Potassium Chloride 20 meq/ Sodium Chloride 1,010 ml @ 0 mls/hr PROTOCOL IV 01/29/24 02:30 01/29/24 19:58 DC 01/29/24 02:37 150 MLS/HR Potassium Chloride/Dextrose/ Sod Cl 1,000 ml @ 0 mls/hr AD IV 01/29/24 02:30 01/29/24 19:58 DC 01/29/24 11:52 150 MLS/HR Potassium Chloride 100 ml @ 50 mls/hr AD PRN IV POTASSIUM PROTOCOL 01/29/24 11:30 02/28/24 11:29 Potassium Chloride 100 ml @ 100 mls/hr AD PRN IV POTASSIUM PROTOCOL 01/29/24 17:00 01/29/24 16:56 DC Potassium Chloride (K-Dur/Klor-Con 20meq) 20 meq AD PRN PO POTASSIUM PROTOCOL 01/29/24 17:00 02/28/24 16:59 01/29/24 17:24 20 MEQ Potassium Chloride (KCl 10% Elixir 20meq/15ml) 20 meq AD PRN PO POTASSIUM PROTOCOL 01/29/24 17:00 02/28/24 16:59 Promethazine HCl (Phenergan) 25 mg Q6H PRN PO NAUSEA 01/29/24 09:00 02/28/24 08:59 Sodium Chloride 1,000 ml @ 200 mls/hr PROTOCOL IV 01/29/24 02:30 01/29/24 19:58 DC 01/29/24 11:51 200 MLS/HR Thiamine HCl (Vitamin B-1) 100 mg DAILY IM 01/29/24 09:00 01/29/24 12:27 DC Thiamine HCl (Vitamin B-1) 100 mg DAILY IVP 01/29/24 17:00 01/31/24 09:01 01/30/24 08:50 100 MG Thiamine HCl (Vitamin B-1) 100 mg DAILY IVP 01/30/24 09:00 01/29/24 16:57 DC DIAGNOSTICS / RADIOLOGY: [ ] CT ABDOMEN/PELVIS W/O CONTRAST HISTORY: Epigastric pain COMPARISON: None TECHNIQUE: Multiple sequential axial images of the abdomen and pelvis were obtained from the dome of the diaphragm through symphysis pubis. Patient was not given contrast through intravenous route. Oral contrast was not given. FINDINGS: No pleural effusion is seen bilaterally. There is right lower lobe mass near the inferior vena cava measuring 3 x 2.6 cm with spiculated border may be related to neoplastic process versus atypical pneumonia. Degenerative changes of the thoracolumbar spine are present. The heart is not enlarged. Liver measures 18 cm. The liver, spleen, adrenal glands and pancreas are unremarkable. There is no evidence of hydronephrosis bilaterally. No evidence of renal stone is seen. Fecal material is seen in the colon. There are normal size retroperitoneal and mesenteric lymph nodes. No ascites is seen. No CT evidence of acute appendicitis is seen. Pelvic sidewalls are symmetric bilaterally. Bladder is moderately distended with bladder wall thickening measuring 5 mm in thickness. If there is clinical suspicion for cystitis, urinalysis correlation may be helpful. IMPRESSION: 1. There is right lower lobe mass near the inferior vena cava measuring 3 x 2.6 cm with spiculated border may be related to neoplastic process with small possibility of atypical pneumonia not excluded. 2. Bladder is moderately distended with bladder wall thickening measuring 5 mm in thickness. If there is clinical suspicion for cystitis, urinalysis correlation may be helpful. ASSESSMENT: Diabetic ketoacidosis with high anion gap metabolic acidosis POA Possible dehydration POA Acute gastroenteritis POA Acute kidney injury POA Sepsis without septic shock POA History of type 1 diabetes POA Possible right lower lobe spiculated mass Urine drug screen positive for cocaine PLAN: Patient has been downgraded to the medical floor Continue the patient on GI soft diet CT abdomen shows a right lower lobe mass near the inferior vena cava We will request CT chest without contrast We will discuss with Pulmonary physician Continue empiric antibiotics Continue p.r.n. medication for pain fever nausea and vomiting Drug screen reviewed, positive for cocaine, counseling provided Replace electrolytes IV per protocol Follow a.m. labs Further recommendations to follow depending upon hospitalization course Plan of action discussed, all questions answered, agreed and understood the information provided. BAILEE SPEAR MD Jan 30, 2024 14:19
--- NOTE | 2024-01-30 16:38 | HMCIMG ---
CT CHEST W/O CONTRAST HISTORY: Cough COMPARISON: 01/29/2024 TECHNIQUE: Multiple sequential axial images of the chest were obtained from the thoracic inlet through upper abdomen. Patient was not given contrast through intravenous route. FINDINGS: There is right lower lobe lung mass posteriorly and medially adjacent to the inferior vena cava measuring 3 x 2.6 cm. Tiny bilateral pleural effusions are seen. There is no evidence of pneumothorax. There is mediastinal adenopathy with the largest lymph node in the pretracheal and prevascular space measuring 2 x 2 centimeter. The heart is not enlarged. Degenerative changes of the thoracolumbar spine are present. There is no evidence of adrenal nodule. IMPRESSION: 1. There is right lower lobe lung mass posteriorly and medially adjacent to the inferior vena cava measuring 3 x 2.6 cm. Tiny bilateral pleural effusions. CT was performed with one or more following dose reduction techniques: automated exposure control, adjustment of the mA and kv according to patient's size, or use of a iterative reconstruction technique.
[2024-01-30] MEDS ORDERED: acetaMINOPHEN 325 MG TAB PO PRN ×2 (22:30)
[2024-01-31] VITALS (8 sets, daily range): BP systolic 107–160; BP diastolic 71–88; PULSE 67–90; RESP 16–18; TEMP 97.8–98.7; O2SAT 99–100
[2024-01-31] MEDS: LOPERAMIDE HCL 2 MG CAP PO PRN (03:42)
[2024-01-31 05:06] LABS: BASOPHILS # (AUTO) 0.09 K/uL (0.00-0.20); BASOPHILS % (AUTO) 1.5 % (0.0-5.0); EOSINOPHILS % (AUTO) 6.8 % (0.0-8.0); HEMATOCRIT 31.9 % (36-48); IMMATURE GRANULOCYTE ABSOLUTE 0.02 K/uL (0-1); LYMPHOCYTES % (AUTO) 34.4 % (21.0-51.0); MEAN CORPUSCULAR HEMOGLOBIN 29.1 pg (27.0-33.0); MEAN CORPUSCULAR VOLUME 90.9 fL (79-99); MONOCYTES # (AUTO) 0.7 K/uL (0.1-1.0); MONOCYTES % (AUTO) 11.8 % (3.0-13.0); NEUTROPHILS # (AUTO) 2.6 K/uL (1.8-7.7); NEUTROPHILS % (AUTO) 45.2 % (40.0-77.0); PLATELET COUNT (AUTO) 237 K/uL (130-400); RED BLOOD CELL COUNT(AUTO) 3.51 MIL/uL (4.00-5.50); RED CELL DISTRIBUTION WIDTH 13.4 % (11.0-15.5); WHITE BLOOD COUNT (AUTO) 5.8 K/uL (4.8-10.8)
[2024-01-31 05:22] LABS: ALBUMIN 2.5 g/dL (3.5-5.0); CREATININE 0.6 mg/dL (0.5-1.0); POTASSIUM 3.5 mmol/L (3.5-5.1); TOTAL PROTEIN, SERUM 5.5 g/dL (6.0-8.3)
[2024-01-31 05:50] LABS: BILIRUBIN,TOTAL 0.1 mg/dL (0.2-1.0)
[2024-01-31] MEDS ORDERED: IOHEXOL-350 75 ML VIAL IV ONE (15:51)
[2024-01-31] MEDS ORDERED: IOHEXOL-350 50ML VIAL IV ONE (15:51)
--- NOTE | 2024-01-31 16:18 | HMCIMG ---
CT CHEST W/CONTRAST HISTORY: Right posterior lower lobe mass COMPARISON: 01/30/2024 TECHNIQUE: Multiple sequential axial images of the chest were obtained from the thoracic inlet through upper abdomen. Patient was not given contrast through intravenous route. FINDINGS: Tiny bilateral pleural effusions are seen. There is right lower lobe mass medially and posteriorly near the lung base measuring 3.7 x 3.7 cm with internal vascularities. This is located adjacent to the inferior vena cava. There is an enhancing mass in the right hepatic lobe near the dome of diaphragm measuring 2 x 1.8 cm. Findings are suggestive of neoplastic process. There is no evidence of pneumothorax. There are normal size mediastinal and hilar lymph nodes. The heart is not enlarged. Degenerative changes of the thoracolumbar spine are present. There is no evidence of adrenal nodule. IMPRESSION: 1. Tiny bilateral pleural effusions are seen. There is right lower lobe mass medially and posteriorly near the lung base measuring 3.7 x 3.7 cm with internal vascularities. This is located adjacent to the inferior vena cava. There is an enhancing mass in the right hepatic lobe near the dome of diaphragm measuring 2 x 1.8 cm. Findings are suggestive of neoplastic process. CT was performed with one or more following dose reduction techniques: automated exposure control, adjustment of the mA and kv according to patient's size, or use of a iterative reconstruction technique.
[2024-01-31] MEDS ORDERED: INSULIN humuLIN R 100 UNIT/ML 3ML SQ ONE (18:40)
[2024-01-31 18:56] LABS: ABG OXYGEN SATURATION 56.8 % (94.0-98.0); DEVICE COMMENT VBG LAB RH; HCO3,VENOUS BLOOD GAS 31.1 (22.0-29.0); PCO2,VENOUS BLOOD GAS 52 (38-54); PH,VENOUS BLOOD GAS 7.396 (7.320-7.430); PO2,VENOUS BLOOD GAS 28.7 mmHg (23.0-48.0); VENT MODE, BG RA (ROOM AIR)
[2024-01-31] MEDS: INSULIN GLARgine 100 UNITS/ML 10 ML VIAL SQ ONE (19:03)
[2024-01-31] MEDS: INSULIN humuLIN R 100 UNIT/ML 3ML SQ ONE (19:23)
[2024-01-31] MEDS: MAGNESIUM 2GM PREMIX 50ML 50 ML IV ONE (20:39)
--- NOTE | 2024-01-31 20:53 | PN ---
[facility] PROGRESS NOTE Date Patient Seen: Jan 31, 2024 Time of Visit: 20:49 Supervising Physician: BARBRA FENTON MD Primary Care Physician: Self-referral Outpatient Specialists: Inpatient Consults: Critical care Attending: Jennifer do PROBLEM LIST: - Diabetic ketoacidosis on admission - Acute dehydration secondary to above - Acute metabolic encephalopathy, secondary to above - Acute kidney injury secondary to dehydration - Type 1 diabetes mellitus - Cocaine use disorder - Tobacco use disorder - Lung mass INTERVAL HISTORY: [ Patient is seen and evaluated, on room air, good appetite, no fevers, no distress Denies chest pain, denies cough or congestion Denies hemoptysis complains of fatigue and generalized weakness] REVIEW OF SYSTEMS: 12 point ROS reviewed with patient. Pertinent positives mentioned above. Otherwise negative. PHYSICAL EXAM: GENERAL: Lethargic, weak, easily arousable, oriented x 3 HEENT: EOMI, Sclera non icteric, moist mucosa NECK: Supple, no JVD, trachea midline LUNGS: Clear breath sounds bilaterally. No wheezes HEART: Regular rate and rhythm. Normal S1 and S2, without murmurs ABD: Abdomen soft, nontender. Bowel sounds present EXT: No clubbing cyanosis or edema NEURO: Alert and oriented to person, follows commands Vital Signs (last 8hr) Date Time Temp Pulse Resp B/P (MAP) Pulse Ox O2 Delivery O2 Flow Rate FiO2 01/31/24 20:00 98.4 67 18 160/84 100 Room Air 01/31/24 20:00 100 Room Air* 0 21 01/31/24 16:00 98.2 77 16 155/79 99 LABS: Hematology Labs: Test 01/31/24 04:55 Range/Units White Blood Count 5.8 4.8-10.8 K/uL Red Blood Count 3.51 L 4.00-5.50 MIL/uL Hemoglobin 10.2 L 12.0-16.0 g/dL Hematocrit 31.9 L 36-48 % Mean Corpuscular Volume 90.9 79-99 fL Mean Corpuscular Hemoglobin 29.1 27.0-33.0 pg Mean Corpuscular Hemoglobin Concent 32.0 32.0-36.0 g/dL Red Cell Distribution Width 13.4 11.0-15.5 % Platelet Count 237 130-400 K/uL Mean Platelet Volume 10.3 7.5-10.5 fL Immature Granulocyte % (Auto) 0.3 0-1 % Neutrophils (%) (Auto) 45.2 40.0-77.0 % Lymphocytes (%) (Auto) 34.4 21.0-51.0 % Monocytes (%) (Auto) 11.8 3.0-13.0 % Eosinophils (%) (Auto) 6.8 0.0-8.0 % Basophils (%) (Auto) 1.5 0.0-5.0 % Neutrophils # (Auto) 2.6 1.8-7.7 K/uL Lymphocytes # (Auto) 2.0 1.0-4.8 K/uL Monocytes # (Auto) 0.7 0.1-1.0 K/uL Eosinophils # (Auto) 0.40 0.00-0.70 K/uL Basophils # (Auto) 0.09 0.00-0.20 K/uL Absolute Immature Granulocyte (auto 0.02 0-1 K/uL Nucleated Red Blood Cells 0.0 0.0-0.19 % Chemistry Labs: Test 01/31/24 19:28 01/31/24 18:52 01/31/24 18:09 01/31/24 04:55 Range/Units Whole Blood Glucose 395 H 70-110 MG/DL Magnesium Level 1.60 L 1.80-2.40 mg/dL Bedside Glucose Comment Notified Nurse Sodium Level 140 136-145 mmol/L Potassium Level 3.5 3.5-5.1 mmol/L Chloride Level 105 101-111 mmol/L Carbon Dioxide Level 30 21-32 mmol/L Blood Urea Nitrogen 5 L 7-18 mg/dL Creatinine 0.6 0.5-1.0 mg/dL Glomerular Filtration Rate Calc 121 >90 mL/min Random Glucose 93 70-105 mg/dL Total Calcium 8.3 L 8.5-10.1 mg/dL Total Bilirubin 0.1 L 0.2-1.0 mg/dL Aspartate Amino Transf (AST/SGOT) 15 10-37 U/L Alanine Aminotransferase (ALT/SGPT) 15 12-78 U/L Alkaline Phosphatase 81 50-136 U/L Total Protein 5.5 L 6.0-8.3 g/dL Albumin 2.5 L 3.5-5.0 g/dL DIAGNOSTICS / RADIOLOGY RESULTS: [ CT of the chest without contrast reviewed ] PLAN Get a CT scan of the chest with IV contrast Patient has a small mass to the right lower lobe adjacent to the IVC Patient informed about finding Advised smoking cessation NEURO: Minimize central acting medications as possible. Maintain fall precautions, adequate lighting during the day PULMONARY: Supplemental 02 as needed. Maintain aspiration precautions at all times CARDIOVASCULAR: Follow hemodynamics. Vital signs per facility protocol GI & NUTRITION: Continue with nutritional support. Continue stool softeners and laxatives as needed. KIDNEYS & ELECTROLYTES: Strict monitoring of intake, output and overall fluid balance. Avoid nephrotoxic medications to the extent possible. Medications to be dosed according to renal function. Monitor electrolytes and replace as needed ENDOCRINE: Maintain blood glucose between 100-180 at all times. Hypoglycemia protocol in place INFECTIOUS DISEASE: Trend temperature, WBC and procalcitonin level Follow cultures, deescalate antibiotics as soon as possible. Panculture if new onset fever ONCOLOGY/HEMATOLOGY/COAGULATION: Monitor for s/s of bleeding Monitor hemoglobin, coagulation studies as needed SKIN: Pressure ulcer prevention per facility protocol Specialty mattress ORTHO/REHAB: Continue PT/OT Prophylaxis: Continue GI and DVT prophylaxis Code Status: Full Resuscitation Disposition: TBD ATTESTATION BY PHYSICIAN The progress note was scribed by CICI Patec on my behalf and I attest to the accuracy of the clinical documentation Barbra Fenton MD I personally scribed for BARBRA FENTON MD ([email or web address]) on 01/31/24 at 20:53. Electronically submitted by Norman Encinas ([email or web address]). BARBRA FENTON MD Jan 31, 2024 20:53
[2024-02-01 03:32] VITALS: BP 121/85; PULSE 94; RESP 20; TEMP 98
[2024-02-01 05:20] LABS: BASOPHILS # (AUTO) 0.05 K/uL (0.00-0.20); EOSINOPHILS # (AUTO) 0.26 K/uL (0.00-0.70); IMMATURE GRANULOCYTE ABSOLUTE 0.01 K/uL (0-1); LYMPHOCYTES # (AUTO) 1.3 K/uL (1.0-4.8); LYMPHOCYTES % (AUTO) 25.2 % (21.0-51.0); MEAN CORPUSCULAR HEMOGLOBIN 29.8 pg (27.0-33.0); MEAN CORPUSCULAR HGB CONC 32.2 g/dL (32.0-36.0); MEAN CORPUSCULAR VOLUME 92.5 fL (79-99); MONOCYTES # (AUTO) 0.6 K/uL (0.1-1.0); MONOCYTES % (AUTO) 10.8 % (3.0-13.0); NEUTROPHILS % (AUTO) 57.8 % (40.0-77.0); PLATELET COUNT (AUTO) 249 K/uL (130-400); RED CELL DISTRIBUTION WIDTH 13.1 % (11.0-15.5); WHITE BLOOD COUNT (AUTO) 5.2 K/uL (4.8-10.8)
[2024-02-01 05:46] LABS: ALBUMIN 2.9 g/dL (3.5-5.0); BILIRUBIN,TOTAL 0.2 mg/dL (0.2-1.0); CREATININE 0.9 mg/dL (0.5-1.0); MAGNESIUM 2.2 mg/dL (1.80-2.40); POTASSIUM 4.4 mmol/L (3.5-5.1); TOTAL PROTEIN, SERUM 6.4 g/dL (6.0-8.3)
[2024-02-01 08:00] VITALS: O2SAT 99
[2024-02-01 08:32] VITALS: BP 104/75; PULSE 104; RESP 18; TEMP 98.9
[2024-02-01 11:24] VITALS: BP 123/77; PULSE 95; RESP 18; TEMP 98.2
--- NOTE | 2024-02-01 12:50 | DS ---
Discharge Summary Hospital Course Summary: The patient initially admitted to the hospital 01/29/2024 with the following history of the present illness: This is a 33-year-old female with past medical history of diabetes type 1 who presented to the ED for complaints of abdominal pain, nausea, vomiting, generalized weakness and diarrhea. Patient stated she had the shrimp cocktail for dinner and she started having nausea, vomiting , diarrhea and epigastric pain. Patient described pain as sharp. Patient stated she had six episodes of nonbloody diarrhea and more than 20 episodes of nonbloody vomiting. Patient reported she has not been taking her insulin for the past two days. Seen and examined patient in the ER awake alert and coherent,appeared acutely ill and uncomfortable. In the emergency room Latest Vital signs temperature 97.9, heart rate 118, blood pressure 99/58, saturation 99% on room air. In the emergency room Labs: VBG PH 7.20, CO2 29, PO2 44, bicarb 11, base excess -15. WBC 15 with negative left shift of neutrophils 84. Sodium 131, chloride 88, CO2 12, BUN 20, creatinine 1.2, GFR 61 glucose 613, ketones 7.4 lactic acid 2.4, lipase 35. While in the ER patient received 2 L of NS bolus, 4 mg IV and patient was started on insulin drip. The patient admitted to the intensive care unit, initiated insulin drip, critical care consultation requested, recommendations followed. The patient responded satisfactorily to medical management, was downgraded to the medical floor. A CT of the abdomen and pelvis without contrast was done, reported as follows: CT ABDOMEN/PELVIS W/O CONTRAST HISTORY: Epigastric pain COMPARISON: None TECHNIQUE: Multiple sequential axial images of the abdomen and pelvis were obtained from the dome of the diaphragm through symphysis pubis. Patient was not given contrast through intravenous route. Oral contrast was not given. FINDINGS: No pleural effusion is seen bilaterally. There is right lower lobe mass near the inferior vena cava measuring 3 x 2.6 cm with spiculated border may be related to neoplastic process versus atypical pneumonia. Degenerative changes of the thoracolumbar spine are present. The heart is not enlarged. Liver measures 18 cm. The liver, spleen, adrenal glands and pancreas are unremarkable. There is no evidence of hydronephrosis bilaterally. No evidence of renal stone is seen. Fecal material is seen in the colon. There are normal size retroperitoneal and mesenteric lymph nodes. No ascites is seen. No CT evidence of acute appendicitis is seen. Pelvic sidewalls are symmetric bilaterally. Bladder is moderately distended with bladder wall thickening measuring 5 mm in thickness. If there is clinical suspicion for cystitis, urinalysis correlation may be helpful. IMPRESSION: 1. There is right lower lobe mass near the inferior vena cava measuring 3 x 2.6 cm with spiculated border may be related to neoplastic process with small possibility of atypical pneumonia not excluded. 2. Bladder is moderately distended with bladder wall thickening measuring 5 mm in thickness. If there is clinical suspicion for cystitis, urinalysis correlation may be helpful. Findings were discussed in detail with the patient. Discussed with the Pulmonary physician, CT chest with IV contrast done, showed tiny bilateral pleural effusions, right lower lobe mass medially and posteriorly near the lung base measuring 3.7 x 3.7 cm with internal vascularity. This is located adjacent to the inferior vena cava. There is an enhancing mass in the right hepatic lobe near the dome of the diaphragm, measuring 2 x 1.8 cm. Findings are suggestive of neoplastic process. Findings on CT chest with IV contrast discussed in detail with the patient. Discussed also with pulmonary physician, recommendation given for triphasic CT of the abdomen, however unfortunately, this test is not done in our facility. Alpha fetoprotein tumor marker requested, already done, we will take three days for the patient to get the results. As of today the patient is alert and oriented x3, hemodynamically stable, according to her, blood sugar at home is in the range of 120 using her current insulin regimen, she has been noncompliant for the last few days prior to presenting to the hospital and she has been using cocaine. She does not have insurance so she can not afford insulin Lantus, she prefers to stay on her home regimen which is cheaper. In regards to the findings on the CT of the abdomen, my recommendation is she follows up with a pulmonary physician as well as oncologist here, we will provide information so she can call and make an appointment. I explained to her to come to the hospital next week to get medical records including the results of the alpha-fetoprotein, to see if it is elevated. I have also requested consultation with case management to help assist with a in the chair programs. Today she denies dizziness, no headache, no blurry vision, no chest pain, no shortness a breath, no palpitation, she is saturating normal on room air. Denies nausea, no vomiting, no abdominal discomfort. She is tolerating diet. Denies diarrhea, no constipation, no melena, no hematochezia, no hematemesis, no hematuria, no dysuria. PHYSICAL EXAM GENERAL APPEARANCE: The patient is awake, alert, and oriented, in no acute cardiopulmonary distress. NEUROLOGICAL: Cranial nerves II-XII grossly intact. Motor is 5/5 in bilateral upper and lower extremities proximal to distal. No sensory deficits. HEENT: Face is symmetric. Pupils are equal and reactive. Extraocular movements are intact. NECK: Supple. No JVD. No thyromegaly. No submental, submandibular, pre- /postauricular, occipital or supraclavicular lymphadenopathy. CHEST: Normal chest expansion. No Telemetry. LUNGS: Absence of any rales, rhonchi or any wheezing. CARDIOVASCULAR: Tachycardic Regular. S1 and S2 normal. No appreciable rubs, murmurs or gallops. ABDOMEN: Abdominal tenderness around epigastric area Soft and nondistended. There is no rebound, voluntary guarding, or rigidity. : Deferred. No Jacob. EXTREMITIES: Non-edematous and not cyanotic. No clubbing. Good capillary refill. SKIN: No skin breakdown. Plan for the patient to be discharged home today. 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 Assessment/Plan: Final diagnosis Diabetic ketoacidosis with high anion gap metabolic acidosis POA Possible dehydration POA Acute gastroenteritis POA Acute kidney injury POA Sepsis without septic shock POA History of type 1 diabetes POA Urine drug screen positive for cocaine Tiny bilateral pleural effusions. Right lower lobe mass medially and posteriorly near the lung base measuring 3.7 x 3.7 cm with a internal vascularities. This is located adjacent to the inferior vena cava. Enhancing mass in the right hepatic lobe near the dome of the diaphragm and measuring 2 x 1.8 cm. Discharge Instructions: Plan is for the patient to be discharged home today, to follow up with Pulmonary, oncologist and new business clerk as an outpatient. Patient to continue insulin home regimen as she is uninsured and can not afford the Lantus, according to her blood sugar is controlled with her insulin regimen. She has been noncompliant and using drugs for last few days prior to presented to the hospital. Case management consultation requested to help assist in indigestion programs. Patient to request medical records next week, including results of alpha fetoprotein. Patient was advised to return to the hospital if condition changes and to be compliant with medical management. Counseling provided terms of drug abuse cessation. Patient alert oriented x3, agreed and understood all the information that has been provided today and in front of the nurse that is taking care of the patient. Home Medications: Reported Medications [70/30 ins, 25 u tid] No Conflict Check, 25 UNITS SQ TID 01/29/24 Time spent arranging discharge: 31-60 minutes BAILEE SPEAR MD Feb 01, 2024 12:50
--- NOTE | 2024-02-01 12:52 | PN ---
[facility] PROGRESS NOTE Date of Service: Feb 01, 2024 Time of Service: 12:51 SUBJECTIVE: Date of service 01/31/2024 Patient downgraded from the ICU, remains admitted to the medical floor, hemodynamically stable, no acute events overnight, results of CT abdomen reviewed, discussed with the patient, denied chest pain, no shortness shortness for breath, no nausea, no vomiting. REVIEW OF SYSTEMS CONSTITUTIONAL: Positive chills Denies fever & night sweats. No unintentional weight loss reported. NEUROLOGICAL: Positive generalized body weakness Denies headache, amaurosis fug ax, motor weakness, sensory deficit, vertigo/spinning sensation, gait abnormalities, or tremors. ENT: No hearing loss, otalgia, otorrhea, rhinitis, rhinorrhea, hoarseness, or sore throat. CARDIOVASCULAR: Denies any exertional angina, dyspnea on exertion, orthopnea, paroxysmal nocturnal dyspnea, palpitations, life-threatening arrhythmias, claudication. PULMONARY: Denies any shortness of breath, cough, phlegm/sputum, hemoptysis, p leuritic chest pain. SLEEP: Denies morning headaches, daytime somnolence or napping. Denies difficulty falling asleep, staying asleep, waking from sleep. Denies knowledge of snoring. GASTROINTESTINAL: Positive abdominal pain, nausea , vomiting and diarrhea Denies any type of dysphagia to either liquids or solids. Denies nausea, vomiting, pyrosis, early satiety, abdominal pain, diarrhea, constipation, or changes in stool consistency or caliber. Denies coffee-ground emesis, hematemesis, hematochezia, or melanotic stools. GENITOURINARY: Denies frequency, urgency, nocturia, hematuria or incontinence (Storage/Irritative symptoms.) Low urinary stream, straining to void, urinary intermittency or hesitancy, splitting of the voiding stream, terminal dribbling. ENDOCRINOLOGIC: Denies polyuria, polydipsia, polyphagia or heat/cold intolerances. HEMATOLOGIC: Denies thrombophilia/previous clots, or coagulopathy/bleeding disorders. ONCOLOGIC: Denies personal history of malignancy. DERMATOLOGIC: Denies rashes or pruritus. PSYCHIATRIC: Denies any suicidal or homicidal ideation. Denies hallucinations. PHYSICAL EXAM GENERAL APPEARANCE: The patient is awake, alert, and oriented, in no acute cardiopulmonary distress. NEUROLOGICAL: Cranial nerves II-XII grossly intact. Motor is 5/5 in bilateral upper and lower extremities proximal to distal. No sensory deficits. HEENT: Face is symmetric. Pupils are equal and reactive. Extraocular movements are intact. NECK: Supple. No JVD. No thyromegaly. No submental, submandibular, pre- /postauricular, occipital or supraclavicular lymphadenopathy. CHEST: Normal chest expansion. No Telemetry. LUNGS: Absence of any rales, rhonchi or any wheezing. CARDIOVASCULAR: Tachycardic Regular. S1 and S2 normal. No appreciable rubs, murmurs or gallops. ABDOMEN: Abdominal tenderness around epigastric area Soft and nondistended. There is no rebound, voluntary guarding, or rigidity. : Deferred. No Jacob. EXTREMITIES: Non-edematous and not cyanotic. No clubbing. Good capillary refill. SKIN: No skin breakdown. Vital Signs (last 8hr) Date Time Temp Pulse Resp B/P (MAP) Pulse Ox O2 Delivery O2 Flow Rate FiO2 02/01/24 11: 98.2 95 18 123/77 96 Room Air 02/01/24 08:32 99.0 104 18 104/75 98 Room Air LABS: Laboratory: Test 02/01/24 11:39 02/01/24 05:14 01/31/24 23:28 01/31/24 18:54 Range/Units Whole Blood Glucose 65 L 70-110 MG/DL White Blood Count 5.2 4.8-10.8 K/uL Red Blood Count 4.00 4.00-5.50 MIL/uL Hemoglobin 11.9 L 12.0-16.0 g/dL Hematocrit 37.0 36-48 % Mean Corpuscular Volume 92.5 79-99 fL Mean Corpuscular Hemoglobin 29.8 27.0-33.0 pg Mean Corpuscular Hemoglobin Concent 32.2 32.0-36.0 g/dL Red Cell Distribution Width 13.1 11.0-15.5 % Platelet Count 249 130-400 K/uL Mean Platelet Volume 10.5 7.5-10.5 fL Immature Granulocyte % (Auto) 0.2 0-1 % Neutrophils (%) (Auto) 57.8 40.0-77.0 % Lymphocytes (%) (Auto) 25.2 21.0-51.0 % Monocytes (%) (Auto) 10.8 3.0-13.0 % Eosinophils (%) (Auto) 5.0 0.0-8.0 % Basophils (%) (Auto) 1.0 0.0-5.0 % Neutrophils # (Auto) 3.0 1.8-7.7 K/uL Lymphocytes # (Auto) 1.3 1.0-4.8 K/uL Monocytes # (Auto) 0.6 0.1-1.0 K/uL Eosinophils # (Auto) 0.26 0.00-0.70 K/uL Basophils # (Auto) 0.05 0.00-0.20 K/uL Absolute Immature Granulocyte (auto 0.01 0-1 K/uL Nucleated Red Blood Cells 0.0 0.0-0.19 % Sodium Level 138 136-145 mmol/L Potassium Level 4.4 3.5-5.1 mmol/L Chloride Level 99 L 101-111 mmol/L Carbon Dioxide Level 35 H 21-32 mmol/L Blood Urea Nitrogen 9 7-18 mg/dL Creatinine 0.9 0.5-1.0 mg/dL Glomerular Filtration Rate Calc 87 >90 mL/min Random Glucose 279 H 70-105 mg/dL Total Calcium 8.9 8.5-10.1 mg/dL Magnesium Level 2.20 1.80-2.40 mg/dL Total Bilirubin 0.2 0.2-1.0 mg/dL Aspartate Amino Transf (AST/SGOT) 13 10-37 U/L Alanine Aminotransferase (ALT/SGPT) 18 12-78 U/L Alkaline Phosphatase 88 50-136 U/L Total Protein 6.4 6.0-8.3 g/dL Albumin 2.9 L 3.5-5.0 g/dL Bedside Glucose Comment Notified Nurse Blood Gas Specimen Type Venous Arterial Blood Oxygen Saturation 56.8 L 94.0-98.0 % Venous Blood pH 7.396 7.320-7.430 Venous Blood pCO2 at Patient Temp 52 38-54 Venous Blood pO2 at Patient Temp 28.7 23.0-48.0 mmHg Venous Blood HCO3 31.1 H 22.0-29.0 Venous Blood Base Excess 5.0 H -2.0-3.0 Venous Blood Total Hemoglobin 13.4 12.0-16.0 Sodium (Blood Gas) 138 136-145 MMOL/L Bedside Potassium (Blood Gas) 4.1 3.4-4.5 MMOL/L Bedside Chloride (Blood Gas) 95 L 98-107 MMOL/L Bedside Glucose (Blood Gas) 444 H 65-95 MG/DL Bedside Ionized Calcium (Blood Gas) 1.19 1.15-1.33 MMOL/L Bedside Lactic Acid (Blood Gas) 4.46 *H 0.36-0.75 MMOL/L Blood Gas Temperature 37.0 35.5-37.0 CELSIUS Blood Gas Vent Mode RA ROOM AIR FiO2 21.0 % Blood Gas Specimen Comment VBG LAB RH Current Medications Medications (Trade) Dose Ordered Sig/Judah Route PRN Reason Start Time Stop Time Status Last Admin Dose Admin Acetaminophen (TYLenol 325MG TAB) 650 mg Q4H PRN PO TEMPERATURE GREATER THAN 101.5 01/30/24 22:30 02/29/24 22:29 Acetaminophen (TYLenol 325MG TAB) 650 mg Q6H PRN PO MILD PAIN (1-3) 01/30/24 22:30 02/29/24 22:29 Dextrose/Sodium Chloride 1,000 ml @ 0 mls/hr AD IV 01/29/24 02:30 01/29/24 19:58 DC Enoxaparin Sodium (Lovenox) 40 mg DAILY SQ 01/29/24 09:00 02/28/24 08:59 02/01/24 08:11 40 MG Famotidine (Pepcid 20mg Vial) 20 mg BID IV 01/29/24 09:00 02/28/24 08:59 02/01/24 08:10 20 MG Folic Acid (FOLic ACID 1 MG TABLET) 1 mg DAILY PO 01/29/24 09:00 01/29/24 13:06 DC 01/29/24 11:48 1 MG Folic Acid (FOLic ACID 1 MG TABLET) 1 mg DAILY PO 01/29/24 13:30 01/30/24 09:01 DC 01/30/24 08:49 1 MG Insulin Glargine (LANtus 100 UNITS/ML 10 ML VIAL) 15 units BID@0730,2100 SQ 01/29/24 21:00 02/28/24 20:59 02/01/24 06:19 15 UNITS Insulin Human Regular (humuLIN R 100 UNIT/ML 3ML) INSULIN SLIDING SCAL... ACHS SQ 01/29/24 07:30 01/29/24 01:00 DC Insulin Human Regular (humuLIN R 100 UNIT/ML 3ML) INSULIN SLIDING SCAL... ACHS SQ 01/29/24 21:00 01/29/24 19:58 DC Insulin Human Regular (humuLIN R 100 UNIT/ML 3ML) INSULIN SLIDING SCAL... ACHS SQ 01/29/24 21:00 02/28/24 20:59 02/01/24 06:19 12 UNIT Insulin Human Regular 100 unit/ Sodium Chloride 100 ml @ 0 mls/hr AD PRN IV HYPERGLYCEMIA PROTOCOL 01/29/24 01:00 01/29/24 13:07 DC Insulin Human Regular 100 unit/ Sodium Chloride 101 ml @ 0 mls/hr PROTOCOL IV 01/29/24 02:30 01/29/24 19:58 DC Lactated Ringer's (Lactated Ringers 1000ml) 1,000 ml AD IV 01/29/24 20:00 02/28/24 19:59 01/29/24 20:27 1,000 ML Levofloxacin/ Dextrose 100 ml @ 100 mls/hr Q24H IV 01/29/24 03:00 01/29/24 08:34 DC 01/29/24 03:24 100 MLS/HR Loperamide HCl (Imodium) 2 mg AD PRN PO AFTER EACH LOOSE STOOL 01/29/24 08:30 02/28/24 08:29 01/31/24 03:42 2 MG Lorazepam (AtiVAN) 2 mg Q4H PRN IVP ALCOHOL WITHDRAWAL PROTOCOL 01/29/24 09:00 02/05/24 08:59 Magnesium Sulfate 50 ml @ 0 mls/hr PROTOCOL IV 01/29/24 02:30 01/29/24 11:22 DC Magnesium Sulfate 50 ml @ 0 mls/hr PROTOCOL PRN IV MAG LESS 2 01/29/24 11:30 02/28/24 11:29 01/29/24 11:51 25 MLS/HR Mannitol (Osmitrol 20% 250ml Bag) 31 gm AD IV 01/29/24 02:30 01/29/24 02:42 DC Mannitol (Osmitrol 20% 500ml Bag) 31 gm AD IV 01/29/24 03:00 01/29/24 07:56 DC Metronidazole/ Sodium Chloride 100 ml @ 100 mls/hr Q8H IV 01/29/24 03:00 01/29/24 08:34 DC 01/29/24 03:24 100 MLS/HR Multivitamins Therapeutic (Multivitamin Tablet) 1 tab DAILY PO 01/29/24 09:00 02/28/24 08:59 02/01/24 08:10 1 TAB Norepinephrine 250 ml @ 0 mls/hr PROTOCOL IV 01/29/24 04:00 02/28/24 03:59 Ondansetron HCl (zoFRAN 4MG INJ) 4 mg Q6H PRN IV NAUSEA/VOMITING 01/29/24 03:00 02/28/24 02:59 01/29/24 07:58 4 MG Pharmacy Profile Note (Pharmacy Communication) 1 each PROTOCOL PRN MISC ETOH Withdrawal Score changes 01/29/24 09:00 01/29/24 08:45 DC Piperacillin Sod/ Tazobactam Sod (Zosyn 3.375gm+NS 50ml) 3.375 gm Q8H IV 01/29/24 09:00 02/08/24 08:59 02/01/24 08:10 3.375 GM Potassium Chloride 20 meq/ Sodium Chloride 1,010 ml @ 0 mls/hr PROTOCOL IV 01/29/24 02:30 01/29/24 19:58 DC 01/29/24 02:37 150 MLS/HR Potassium Chloride/Dextrose/ Sod Cl 1,000 ml @ 0 mls/hr AD IV 01/29/24 02:30 01/29/24 19:58 DC 01/29/24 11:52 150 MLS/HR Potassium Chloride 100 ml @ 50 mls/hr AD PRN IV POTASSIUM PROTOCOL 01/29/24 11:30 02/28/24 11:29 Potassium Chloride 100 ml @ 100 mls/hr AD PRN IV POTASSIUM PROTOCOL 01/29/24 17:00 01/29/24 16:56 DC Potassium Chloride (K-Dur/Klor-Con 20meq) 20 meq AD PRN PO POTASSIUM PROTOCOL 01/29/24 17:00 02/28/24 16:59 01/31/24 06:19 20 MEQ Potassium Chloride (KCl 10% Elixir 20meq/15ml) 20 meq AD PRN PO POTASSIUM PROTOCOL 01/29/24 17:00 02/28/24 16:59 Promethazine HCl (Phenergan) 25 mg Q6H PRN PO NAUSEA 01/29/24 09:00 02/28/24 08:59 Sodium Chloride 1,000 ml @ 200 mls/hr PROTOCOL IV 01/29/24 02:30 01/29/24 19:58 DC 01/29/24 11:51 200 MLS/HR Thiamine HCl (Vitamin B-1) 100 mg DAILY IM 01/29/24 09:00 01/29/24 12:27 DC Thiamine HCl (Vitamin B-1) 100 mg DAILY IVP 01/29/24 17:00 01/31/24 09:01 DC 01/31/24 09:10 100 MG Thiamine HCl (Vitamin B-1) 100 mg DAILY IVP 01/30/24 09:00 01/29/24 16:57 DC DIAGNOSTICS / RADIOLOGY: [ ] ASSESSMENT: Diabetic ketoacidosis with high anion gap metabolic acidosis POA Possible dehydration POA Acute gastroenteritis POA Acute kidney injury POA Sepsis without septic shock POA History of type 1 diabetes POA Possible right lower lobe spiculated mass Urine drug screen positive for cocaine PLAN: Patient remains admitted to the medical floor Continue the patient on GI soft diet CT abdomen shows a right lower lobe mass near the inferior vena cava Pulmonary consultation requested, CT chest with IV contrast requested, we will follow Continue empiric antibiotics Continue p.r.n. medication for pain fever nausea and vomiting Drug screen reviewed, positive for cocaine, counseling provided Replace electrolytes IV per protocol Follow a.m. labs Further recommendations to follow depending upon hospitalization course Plan of action discussed, all questions answered, agreed and understood the information provided. BAILEE SPEAR MD Feb 01, 2024 12:52
--- NOTE | 2024-02-01 15:07 | PN ---
[facility] PROGRESS NOTE Date Patient Seen: Feb 01, 2024 Time of Visit: 15:07 Supervising Physician: [Dr. Westfall] Primary Care Physician: Self-referral Outpatient Specialists: Inpatient Consults: Critical care Attending: Jennifer team PROBLEM LIST: - Diabetic ketoacidosis on admission - Acute dehydration secondary to above - Acute metabolic encephalopathy, secondary to above - Acute kidney injury secondary to dehydration - Type 1 diabetes mellitus - Cocaine use disorder - Tobacco use disorder - Lung mass INTERVAL HISTORY: [ Patient is seen and evaluated, on room air, good appetite, no fevers, no distress. No current chest pain, denies cough, congestion or hemoptysis. She was found to have a right lower lobe lung mass posteriorly and medially adjacent to the inferior vena cava measuring 3 X 2.6cm. 1:[address] Westfall and hospitalist group and patient was advised to follow up with pulmonary outpatient for evaluation and further recommendation. Patient should also follow up with oncology outpatient.] REVIEW OF SYSTEMS: 12 point ROS reviewed with patient. Pertinent positives mentioned above. Otherwise negative. PHYSICAL EXAM: GENERAL: Lethargic, weak, easily arousable, oriented x 3 HEENT: EOMI, Sclera non icteric, moist mucosa NECK: Supple, no JVD, trachea midline LUNGS: Clear breath sounds bilaterally. No wheezes HEART: Regular rate and rhythm. Normal S1 and S2, without murmurs ABD: Abdomen soft, nontender. Bowel sounds present EXT: No clubbing cyanosis or edema NEURO: Alert and oriented to person, follows commands Vital Signs (last 8hr) Date Time Temp Pulse Resp B/P (MAP) Pulse Ox O2 Delivery O2 Flow Rate FiO2 02/01/24 11: 98.2 95 18 123/77 96 Room Air 02/01/24 08:32 99.0 104 18 104/75 98 Room Air 02/01/24 08:00 99 Room Air* 0 21 LABS: Hematology Labs: Test 02/01/24 05:14 Range/Units White Blood Count 5.2 4.8-10.8 K/uL Red Blood Count 4.00 4.00-5.50 MIL/uL Hemoglobin 11.9 L 12.0-16.0 g/dL Hematocrit 37.0 36-48 % Mean Corpuscular Volume 92.5 79-99 fL Mean Corpuscular Hemoglobin 29.8 27.0-33.0 pg Mean Corpuscular Hemoglobin Concent 32.2 32.0-36.0 g/dL Red Cell Distribution Width 13.1 11.0-15.5 % Platelet Count 249 130-400 K/uL Mean Platelet Volume 10.5 7.5-10.5 fL Immature Granulocyte % (Auto) 0.2 0-1 % Neutrophils (%) (Auto) 57.8 40.0-77.0 % Lymphocytes (%) (Auto) 25.2 21.0-51.0 % Monocytes (%) (Auto) 10.8 3.0-13.0 % Eosinophils (%) (Auto) 5.0 0.0-8.0 % Basophils (%) (Auto) 1.0 0.0-5.0 % Neutrophils # (Auto) 3.0 1.8-7.7 K/uL Lymphocytes # (Auto) 1.3 1.0-4.8 K/uL Monocytes # (Auto) 0.6 0.1-1.0 K/uL Eosinophils # (Auto) 0.26 0.00-0.70 K/uL Basophils # (Auto) 0.05 0.00-0.20 K/uL Absolute Immature Granulocyte (auto 0.01 0-1 K/uL Nucleated Red Blood Cells 0.0 0.0-0.19 % Chemistry Labs: Test 02/01/24 11:39 02/01/24 05:14 01/31/24 23:28 Range/Units Whole Blood Glucose 65 L 70-110 MG/DL Sodium Level 138 136-145 mmol/L Potassium Level 4.4 3.5-5.1 mmol/L Chloride Level 99 L 101-111 mmol/L Carbon Dioxide Level 35 H 21-32 mmol/L Blood Urea Nitrogen 9 7-18 mg/dL Creatinine 0.9 0.5-1.0 mg/dL Glomerular Filtration Rate Calc 87 >90 mL/min Random Glucose 279 H 70-105 mg/dL Total Calcium 8.9 8.5-10.1 mg/dL Magnesium Level 2.20 1.80-2.40 mg/dL Total Bilirubin 0.2 0.2-1.0 mg/dL Aspartate Amino Transf (AST/SGOT) 13 10-37 U/L Alanine Aminotransferase (ALT/SGPT) 18 12-78 U/L Alkaline Phosphatase 88 50-136 U/L Total Protein 6.4 6.0-8.3 g/dL Albumin 2.9 L 3.5-5.0 g/dL Bedside Glucose Comment Notified Nurse DIAGNOSTICS / RADIOLOGY RESULTS: CT CHEST W/O CONTRAST HISTORY: Cough COMPARISON: 01/29/2024 TECHNIQUE: Multiple sequential axial images of the chest were obtained from the thoracic inlet through upper abdomen. Patient was not given contrast through intravenous route. FINDINGS: There is right lower lobe lung mass posteriorly and medially adjacent to the inferior vena cava measuring 3 x 2.6 cm. Tiny bilateral pleural effusions are seen. There is no evidence of pneumothorax. There is mediastinal adenopathy with the largest lymph node in the pretracheal and prevascular space measuring 2 x 2 centimeter. The heart is not enlarged. Degenerative changes of the thoracolumbar spine are present. There is no evidence of adrenal nodule. IMPRESSION: 1. There is right lower lobe lung mass posteriorly and medially adjacent to the inferior vena cava measuring 3 x 2.6 cm. Tiny bilateral pleural effusions. PLAN Patient has a small mass to the right lower lobe adjacent to the IVC Patient informed about finding Advised smoking cessation Follow up with outpatient pulmonology for further evaluation and recommendation Follow up with oncology outpatient NEURO: Minimize central acting medications as possible. Maintain fall precautions, adequate lighting during the day PULMONARY: Supplemental 02 as needed. Maintain aspiration precautions at all times CARDIOVASCULAR: Follow hemodynamics. Vital signs per facility protocol GI & NUTRITION: Continue with nutritional support. Continue stool softeners and laxatives as needed. KIDNEYS & ELECTROLYTES: Strict monitoring of intake, output and overall fluid balance. Avoid nephrotoxic medications to the extent possible. Medications to be dosed according to renal function. Monitor electrolytes and replace as needed ENDOCRINE: Maintain blood glucose between 100-180 at all times. Hypoglycemia protocol in place INFECTIOUS DISEASE: Trend temperature, WBC and procalcitonin level Follow cultures, deescalate antibiotics as soon as possible. Panculture if new onset fever ONCOLOGY/HEMATOLOGY/COAGULATION: Monitor for s/s of bleeding Monitor hemoglobin, coagulation studies as needed SKIN: Pressure ulcer prevention per facility protocol Specialty mattress ORTHO/REHAB: Continue PT/OT Prophylaxis: Continue GI and DVT prophylaxis Code Status: Full Resuscitation Disposition: TBD ATTESTATION BY PHYSICIAN The progress note was scribed by Norman Encinas BSc on my behalf and I attest to the accuracy of the clinical documentation Manuel Gonzalez MD, MARCUS A PA Feb 01, 2024 15:07
== END 2024-02-01 14:05 | disposition home or self-care (01) | DRG 871 ==
LOC: EDH 00:17 → EDHIP 02:57 → 2CH 04:33 → 3DH 01-30 09:22
PROVIDERS: ADMIT Internal Medicine; ATTEND Internal Medicine
DX: A41.9 Sepsis, unspecified organism (principal); E10.10 Type 1 diabetes mellitus with ketoacidosis without coma; G93.41 Metabolic encephalopathy; N17.9 Acute kidney failure, unspecified; K52.9 Noninfective gastroenteritis and colitis, unspecified; Z20.822 Contact with and (suspected) exposure to COVID-19; F19.10 Other psychoactive substance abuse, uncomplicated; E86.0 Dehydration; E83.42 Hypomagnesemia; F14.10 Cocaine abuse, uncomplicated; F17.200 Nicotine dependence, unspecified, uncomplicated; Z79.4 Long term (current) use of insulin; Z79.899 Other long term (current) drug therapy
CPT/HCPCS: 36415; 36600; 71045; 71250; 71260; 74176; 80048; 80053; 80305; 81001; 81025; 82010; 82105; 82435; 82803; 82947; 82948; 83036; 83605; 83690; 83735; 84132; 84145; 84295; 84443; 85025; 87040; 87426; 87804; 93005; 96375; 96376; 99291; G0378; J1650; J1815; J1956; J2405; J2543; J3411; J3475; J3480; J3490; J7030; Q9967